=== PATIENT | female | born 1975 | race Caucasian/White ===

== ENCOUNTER 2016-07-11 07:36 | Emergency (ER) | payer OTHER ==
[2016-07-11 07:56] VITALS: BP 136/63; PULSE 88; RESP 16; TEMP 98
[2016-07-11] MEDS ORDERED: MORPHINE SULFATE 4 MG/ML SYRINGE IM STA (08:11)
--- NOTE | 2016-07-11 08:13 | ED ---
General Adult HPI - General Chief complaint: Back Pain/Injury Stated complaint: SCIATIC NERVE Time Seen by Provider: 07/11/16 08:06 Source: patient, RN notes reviewed Mode of arrival: wheelchair Limitations: no limitations - History of Present Illness Initial comments: Patient 41-year-old female who presents emergency room today with chief complaint of exacerbation of chronic sciatic pain. She does admit to pain that radiates down right leg. States goes down to her toes. Denies any bowel or bladder incontinence retention. Denies any saddle anesthesia. Denies any other complaints or associated symptoms. Patient denies any recent fever, chills , shortness of breath, chest pain, abdominal pain, nausea or vomiting, dysuria or hematuria, constipation or diarrhea, headaches or visual changes, or any other complaints. - Related Data Home Medications Medication Instructions Recorded Confirmed Albuterol Sulfate [Proair 1 puff PO RT-Q6H PRN 06/28/16 06/28/16 Respiclick] ALPRAZolam [Xanax] 0.5 mg PO BID PRN 07/11/16 07/11/16 DULoxetine HCL [Cymbalta] 20 mg PO DAILY 07/11/16 07/11/16 Hydrocodone/Acetaminophen [[place] 1 tab PO Q6H PRN 07/11/16 07/11/16 10-325] Ibuprofen [Motrin] 800 mg PO 07/11/16 Allergies Allergy/AdvReac Type Severity Reaction Status Date / Time Penicillins Allergy Severe Anaphylaxis Verified 07/11/16 07:55 Review of Systems ROS Statement: Those systems with pertinent positive or pertinent negative responses have been documented in the HPI. ROS Other: All systems not noted in ROS Statement are negative. Past Medical History Past Medical History: Asthma, COPD, Musculoskeletal Disorder Additional Past Medical History / Comment(s): spontanious pneumothorax x 5, colitis, chronic back pain migraines, ddd, 11/23/15 swallowed a ring and is in pt 's. 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 - Past Family History Mother History Unknown: Yes Family Medical History: Asthma, COPD, Hypertension, Myocardial Infarction ([place]) Additional Family Medical History / Comment(s): Arthritis General Exam - General Exam Comments Initial Comments: General: The patient is awake and alert, in no distress, and does not appear acutely ill. Eye: Pupils are equal, round and reactive to light, extra-ocular movements are intact. No nystagmus. There is normal conjunctiva bilaterally. No signs of icterus. Ears, nose, mouth and throat: There are moist mucous membranes and no oral lesions. Neck: The neck is supple, there is no tenderness or JVD. Cardiovascular: There is a regular rate and rhythm. No murmur, rub or gallop is appreciated. Respiratory: Lungs are clear to auscultation, respirations are non-labored, breath sounds are equal. No wheezes, stridor, rales, or rhonchi. Musculoskeletal: Normal ROM. Normal appearance of thoracic, lumbar spine. No step-offs deformity is appreciated. No tenderness over the spinous processes. Mild tenderness paravertebrally right lower lumbar. Strength 5/5. Sensation intact. Pulses equal bilaterally 2+. Neurological: A&O x 3. CN II-XII intact, There are no obvious motor or sensory deficits. Coordination appears grossly intact. Speech is normal. Skin: Skin is warm and dry and no rashes or lesions are noted. Psychiatric: Cooperative, appropriate mood & affect, normal judgment. Limitations: no limitations Course Vital Signs 07/11/16 07:51 Temperature 98.0 F Pulse Rate 88 Respiratory 16 Rate Blood Pressure 136/63 O2 Sat by Pulse 99 Oximetry Medical Decision Making - Medical Decision Making Patient be given a shot of pain medication of morphine here in emergency room discharged home advised follow-up with her family doctor. Disposition Clinical Impression: Acute exacerbation of chronic low back pain Disposition: HOME SELF-CARE Condition: Good Instructions: Chronic Back Pain (ED) Additional Instructions: Please follow-up with family doctor in the next 2 days of symptoms have not improved. Please return to emergency room if the symptoms increase or worsen or for any other concerns. Time of Disposition: 08:12
== END 2016-07-11 08:27 | disposition home or self-care (01) ==
LOC: EC 07:36 → SUPCPDRO 07:36 → EC 08:27
DX: G89.29 Other chronic pain (principal); M54.5 Low back pain; F32.9 Major depressive disorder, single episode, unspecified; F41.9 Anxiety disorder, unspecified; Z79.899 Other long term (current) drug therapy; Z88.0 Allergy status to penicillin
CPT/HCPCS: 99282; 96372; J2270

== ENCOUNTER 2016-07-12 00:06 | Emergency (ER) | payer OTHER ==
[2016-07-12 00:17] VITALS: TEMP 97.2
[2016-07-12] MEDS ORDERED: KETOROLAC 60 MG/2 ML VIAL IM STA (00:58)
[2016-07-12] MEDS ORDERED: ORPHENADRINE 30 MG/ML 2 ML VIAL IM STA (00:58)
[2016-07-12 01:30] LABS: Basophils # (A) 0.1 k/uL (0-0.2); Basophils % (A) 1 %; CH 31.5; Eosinophils # (A) 0.2 k/uL (0-0.7); Eosinophils % (A) 3 %; HCT 36.7 % (34.0-46.0); HDW 2.39; Luc # (Auto) 0.08; Luc % (Auto) 2; Lymphocytes # (A) 1.7 k/uL (1.0-4.8); Lymphocytes % (A) 30 %; MCH 30.3 pg (25.0-35.0); MCHC 32.6 g/dL (31.0-37.0); MCV 92.9 fL (80.0-100.0); Mean Platelet Volume 7.7; Monocytes # (A) 0.2 k/uL (0-1.0); Monocytes % (A) 4 %; Neutrophils # (A) 3.4 k/uL (1.3-7.7); Neutrophils % (A) 60 %; RBC 3.95 m/uL (3.80-5.40); RDW 12.9 % (11.5-15.5); WBC 5.6 k/uL (3.8-10.6); WBC (Perox) 5.99
[2016-07-12 01:45] LABS: Anion Gap 12 mmol/L; Blood Urea Nitrogen 12 mg/dL (7-17); Calcium 8.8 mg/dL (8.4-10.2); Carbon Dioxide 25 mmol/L (22-30); Chloride 102 mmol/L (98-107); Glucose 108 mg/dL (74-99); Non-African American GFR(MDRD) >60 (>60 ml/min/1.73 sqM); Potassium 4.1 mmol/L (3.5-5.1); Sodium 139 mmol/L (137-145)
[2016-07-12 01:57] VITALS: BP 112/68; PULSE 80; RESP 16
[2016-07-12] MEDS ORDERED: predniSONE 20 MG TAB PO STA (02:17)
--- NOTE | 2016-07-12 02:19 | ED ---
[id number]: pain all over/swelling-revisit Time Seen by Provider: 07/12/16 00:20 Source: patient, RN notes reviewed Limitations: no limitations - History of Present Illness Initial Comments: This patient is a 41-year-old woman who presents to be reevaluated for low back pain and sciatica. Patient states she was seen here yesterday. She was given medication which did somewhat improve her symptoms, and then she went home. She states that she helped her sister take down [place] decorations and then experienced flaring up of the low back pain with radiation now to both legs rather than just the left as is usual for her. The patient describes the pain as being constant, severe, a burning/tingling pain. She denies any loss of bladder or bowel control. She states she is able to walk. Pain seems to be worse with bending. She has not noted any relieving factors. MD Complaint: back pain, back injury -: hour(s) Similar Symptoms Previously: Yes Place: home Radiation: left leg, right leg Severity: severe Quality: burning, tingling Consistency: constant Improves With: none Context: other Associated Symptoms: denies other symptoms - Related Data Home Medications Medication Instructions Recorded Confirmed Albuterol Sulfate [Proair 1 puff PO RT-Q6H PRN 06/28/16 07/12/16 Respiclick] ALPRAZolam [Xanax] 0.5 mg PO BID PRN 07/11/16 07/12/16 DULoxetine HCL [Cymbalta] 20 mg PO DAILY 07/11/16 07/12/16 Hydrocodone/Acetaminophen [[place] 1 tab PO Q6H PRN 07/11/16 07/12/16 10-325] Ibuprofen [Motrin] 800 mg PO TID PRN 07/11/16 07/12/16 Previous Rx's Medication Instructions Recorded Methocarbamol [Robaxin-750] 750 mg PO TID PRN #30 tablet 07/12/16 predniSONE 60 mg PO DAILY #30 tab 07/12/16 Allergies Allergy/AdvReac Type Severity Reaction Status Date / Time Penicillins Allergy Severe Anaphylaxis Verified 07/12/16 00:17 Review of Systems ROS Statement: Those systems with pertinent positive or pertinent negative responses have been documented in the HPI. ROS Other: All systems not noted in ROS Statement are negative. Constitutional: Denies: fever, chills, weakness Respiratory: Denies: cough, dyspnea Cardiovascular: Reports: edema. Denies: chest pain, syncope Gastrointestinal: Denies: abdominal pain, nausea, vomiting, diarrhea, constipation Genitourinary: Denies: dysuria, hematuria Musculoskeletal: Reports: as per HPI, back pain Neurological: Reports: paresthesias. Denies: weakness, numbness, abnormal gait Past Medical History Past Medical History: Asthma, COPD, Musculoskeletal Disorder Additional Past Medical History / Comment(s): spontanious pneumothorax x 5, colitis, chronic back pain migraines, ddd, 11/23/15 swallowed a ring and is in pt 's. 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 - Past Family History Mother History Unknown: Yes Family Medical History: Asthma, COPD, Hypertension, Myocardial Infarction ([place]) Additional Family Medical History / Comment(s): Arthritis General Exam Limitations: no limitations General appearance: alert, in no apparent distress Head exam: Present: atraumatic, normocephalic Cardiovascular Exam: Present: regular rate, normal rhythm, normal heart sounds. Absent: systolic murmur, diastolic murmur, rubs, gallop GI/Abdominal exam: Present: soft. Absent: tenderness, guarding, rebound, rigid , mass, pulsatile mass Extremities exam: Present: normal inspection, normal capillary refill. Absent: calf tenderness Back exam: Present: paraspinal tenderness. Absent: CVA tenderness (R), CVA tenderness (L) Neurological exam: Present: alert, reflexes normal. Absent: motor sensory deficit Skin exam: Present: warm, dry, intact, normal color. Absent: rash Course Vital Signs 07/12/16 07/12/16 00:14 01:56 Temperature 97.2 F L Pulse Rate 93 80 Respiratory 18 16 Rate Blood Pressure 115/73 112/68 O2 Sat by Pulse 100 97 Oximetry Medical Decision Making - Medical Decision Making Patient is a 41-year-old woman presenting for reevaluation of low back pain after she had helped her sister work around the house. The patient while waiting for the results of the computed tomography scan did become quite irate and stated that she was leaving. Discussed risks of leaving prior to finishing her workup and the patient states she was going anyways. - Lab Data Result diagrams: 07/12/16 01:04 07/12/16 01:04 Lab Results 07/12/16 07/12/16 07/12/16 Range/Units 01:04 01:04 01:04 WBC 5.6 (3.8-10.6) k/uL RBC 3.95 (3.80-5.40) m/uL Hgb 12.0 (11.4-16.0) gm/dL Hct 36.7 (34.0-46.0) % MCV 92.9 (80.0-100.0) fL MCH 30.3 (25.0-35.0) pg MCHC 32.6 (31.0-37.0) g/dL RDW 12.9 (11.5-15.5) % Plt Count 192 (150-450) k/uL Neutrophils % 60 % Lymphocytes % 30 % Monocytes % 4 % Eosinophils % 3 % Basophils % 1 % Neutrophils # 3.4 (1.3-7.7) k/uL Lymphocytes # 1.7 (1.0-4.8) k/uL Monocytes # 0.2 (0-1.0) k/uL Eosinophils # 0.2 (0-0.7) k/uL Basophils # 0.1 (0-0.2) k/uL D-Dimer 0.25 (<0.60) mg/L FEU Sodium 139 (137-145) mmol/L Potassium 4.1 (3.5-5.1) mmol/L Chloride 102 (98-107) mmol/L Carbon Dioxide 25 (22-30) mmol/L Anion Gap 12 mmol/L BUN 12 (7-17) mg/dL Creatinine 0.60 (0.52-1.04) mg/dL Est GFR (MDRD) Af Amer >60 (>60 ml/min/1.73 sqM) Est GFR (MDRD) Non-Af >60 (>60 ml/min/1.73 sqM) Glucose 108 H (74-99) mg/dL Calcium 8.8 (8.4-10.2) mg/dL Disposition Clinical Impression: Lumbar radiculopathy Disposition: Left Against Medical Advice Condition: Fair Instructions: Sciatica (ED) Prescriptions: Methocarbamol [Robaxin-750] 750 mg PO TID PRN #30 tablet PRN Reason: pain predniSONE 60 mg PO DAILY #30 tab Referrals: Sarita Smiley MD [Primary Care Provider] - 1-2 days
--- NOTE | 2016-07-12 03:13 | CT ---
EXAMINATION TYPE: CT lumbar spine wo con DATE OF EXAM: 07/12/2016 2:58 AM COMPARISON: NONE HISTORY: pt slipped but did not fall in the bathroom, tweaked back, Hx of DDD, musculoskeletal disord er and herniated disc, history of pain injections today, swelling to bilateral leg and left leg sciat ica CT DLP: 1009.90 mGycm Automated exposure control for dose reduction was used. Unenhanced CT of the lumbar spine was performed. Bone and soft tissue window settings are submitted as well as coronal and sagittal reconstructions. FINDINGS: The lumbar vertebra have normal alignment. Disc spaces are fairly normal. Posterior elements are inta ct. There is no subluxation. I see no compression fracture. There is no lumbar paraspinal mass. There is no evidence of a bony destructive process. The sacroiliac joints appear normal. There is a mild p osterior L4-5 disc herniation with slight impingement on the thecal sac. There is also small posterio r L5-S1 disc herniation. CONCLUSION: Posterior mild disc herniations at L4-5 and L5-S1. No fracture seen.
== END 2016-07-12 03:01 | disposition left against medical advice (07) ==
LOC: EC 00:06
DX: M54.16 Radiculopathy, lumbar region (principal); F32.9 Major depressive disorder, single episode, unspecified; F41.9 Anxiety disorder, unspecified; F17.200 Nicotine dependence, unspecified, uncomplicated; Z79.899 Other long term (current) drug therapy; Z88.0 Allergy status to penicillin
CPT/HCPCS: 99284; 96372 ×2; 36415; 85379; 80048; 85025; 72131; J2360; J1885; J7512

== ENCOUNTER 2016-08-31 08:47 | Emergency (ER) | payer OTHER ==
[2016-08-31 08:58] VITALS: TEMP 97.1
[2016-08-31] MEDS ORDERED: LORazepam 1 MG TAB PO STA (09:20)
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
[2016-08-31 10:19] VITALS: BP 127/96; PULSE 103; RESP 16
== END 2016-08-31 10:20 | disposition home or self-care (01) ==
LOC: EC 08:47
DX: F41.9 Anxiety disorder, unspecified (principal); F32.9 Major depressive disorder, single episode, unspecified; F17.200 Nicotine dependence, unspecified, uncomplicated; Z88.0 Allergy status to penicillin; Z79.899 Other long term (current) drug therapy
CPT/HCPCS: 99282

== ENCOUNTER 2016-09-01 08:03 | Emergency (ER) | payer OTHER ==
[2016-09-01] MEDS ORDERED: HYDROcodone/APAP 5-325MG 1 EACH TAB PO STA (08:21)
[2016-09-01] MEDS ORDERED: DIPH,PERTUS(ACELL)TETVAC-LF 0.5 ML VIAL IM ONE (08:21)
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
[2016-09-01 09:48] VITALS: BP 114/55; PULSE 76; RESP 14
[2016-09-01 09:49] VITALS: TEMP 99.1
== END 2016-09-01 09:50 | disposition home or self-care (01) ==
LOC: EC 08:03
DX: S63.502A Unspecified sprain of left wrist, initial encounter (principal); J44.9 Chronic obstructive pulmonary disease, unspecified; J45.909 Unspecified asthma, uncomplicated; F41.9 Anxiety disorder, unspecified; F32.9 Major depressive disorder, single episode, unspecified; M79.9 Soft tissue disorder, unspecified; F17.200 Nicotine dependence, unspecified, uncomplicated; Z23 Encounter for immunization; Z79.899 Other long term (current) drug therapy; Z88.0 Allergy status to penicillin; Z88.8 Allergy status to other drugs, medicaments and biological substances; W18.30XA Fall on same level, unspecified, initial encounter; X50.1XXA Overexertion from prolonged static or awkward postures, initial encounter
CPT/HCPCS: 90471; 90715; 99283

== ENCOUNTER 2016-10-28 19:24 | Emergency (ER) | payer OTHER ==
[2016-10-28 19:52] VITALS: PULSE 105; RESP 20; TEMP 98.5
[2016-10-28 20:13] VITALS: BP 165/102
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
== END 2016-10-28 21:03 | disposition home or self-care (01) ==
LOC: EC 19:24
DX: F10.129 Alcohol abuse with intoxication, unspecified (principal); F32.9 Major depressive disorder, single episode, unspecified; F41.9 Anxiety disorder, unspecified; F17.200 Nicotine dependence, unspecified, uncomplicated; Z79.899 Other long term (current) drug therapy; Z88.0 Allergy status to penicillin; Z88.8 Allergy status to other drugs, medicaments and biological substances
CPT/HCPCS: 82075; 99284

== ENCOUNTER 2016-11-11 20:56 | Emergency (ER) | payer OTHER ==
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
[2016-11-11 22:22] VITALS: RESP 18
[2016-11-11 22:28] LABS: Basophils % (A) 1 %; CH 31.5; CHCM 34.9; Eosinophils % (A) 1 %; HCT 33.7 % (34.0-46.0); HDW 2.37; HGB 11.7 gm/dL (11.4-16.0); Luc # (Auto) 0.07; Luc % (Auto) 2; Lymphocytes # (A) 1.2 k/uL (1.0-4.8); Lymphocytes % (A) 27 %; MCH 31.6 pg (25.0-35.0); MCHC 34.8 g/dL (31.0-37.0); MCV 90.7 fL (80.0-100.0); Mean Platelet Volume 7.1; Monocytes # (A) 0.2 k/uL (0-1.0); Monocytes % (A) 3 %; Neutrophils % (A) 67 %; RBC 3.71 m/uL (3.80-5.40); RDW 14.1 % (11.5-15.5); WBC 4.6 k/uL (3.8-10.6); WBC (Perox) 4.58
[2016-11-11 22:39] LABS: ALT 32 U/L (9-52); AST 36 U/L (14-36); Acetaminophen <10.0 ug/mL; Alkaline Phosphatase 66 U/L (38-126); Anion Gap 9 mmol/L; Blood Urea Nitrogen 15 mg/dL (7-17); Calcium 8.3 mg/dL (8.4-10.2); Carbon Dioxide 23 mmol/L (22-30); Chloride 109 mmol/L (98-107); Glucose 94 mg/dL (74-99); Non-African American GFR(MDRD) >60 (>60 ml/min/1.73 sqM); Potassium 3.8 mmol/L (3.5-5.1); Salicylate <1.0 mg/dL; Sodium 141 mmol/L (137-145); Total Bilirubin 0.3 mg/dL (0.2-1.3); Total Protein 6.5 g/dL (6.3-8.2)
[2016-11-11 22:40] LABS: Alcohol 182 mg/dL
--- NOTE | 2016-11-12 06:40 | XR ---
EXAM: XR Right Ribs and AP Chest, 3 or More Views CLINICAL HISTORY: Reason: Pain TECHNIQUE: Frontal and oblique views of the right ribs and frontal view of the chest. COMPARISON: Chest radiograph 06/08/2016 FINDINGS: Supine frontal chest radiograph: Lungs: Mild chronic right apical fibrotic scarring. Lungs are otherwise clear without acute infiltrates or consolidations. Pleural space: No evidence of pleural effusion or pneumothorax. Heart: Heart size and mediastinal structures are within normal limits. Mediastinum: Unremarkable. Right rib radiographs: Bones/joints: No right rib fractures identified. No osteolytic, osteoblastic or bony destructive rib lesions identified. IMPRESSION: No evidence of right rib fracture.
[2016-11-12 07:29] VITALS: BP 134/58; PULSE 77; TEMP 98.4
== END 2016-11-12 07:29 | disposition home or self-care (01) ==
LOC: EC 20:56
DX: F10.10 Alcohol abuse, uncomplicated (principal); R45.851 Suicidal ideations; F43.9 Reaction to severe stress, unspecified; F32.9 Major depressive disorder, single episode, unspecified; F41.9 Anxiety disorder, unspecified; F17.200 Nicotine dependence, unspecified, uncomplicated; Z79.899 Other long term (current) drug therapy; Z79.891 Long term (current) use of opiate analgesic; Z88.0 Allergy status to penicillin; Z88.8 Allergy status to other drugs, medicaments and biological substances
CPT/HCPCS: 36415; 80053; 80306; 80320; 81025; 83520; 85025; 93005; 99285

== ENCOUNTER 2016-12-14 15:17 | Emergency (ER) | payer OTHER ==
[2016-12-14 15:24] VITALS: BP 125/64; PULSE 103; RESP 18; TEMP 97.4
[2016-12-14] MEDS ORDERED: KETOROLAC 60 MG/2 ML VIAL IM STA (15:48)
[2016-12-14] MEDS ORDERED: CYCLOBENZAPRINE 10 MG TAB PO STA (15:48)
--- NOTE | 2016-12-14 15:52 | ED ---
Back Pain HPI - General Chief Complaint: Back Pain/Injury Stated Complaint: Fall/ 4 steps/Back Pain Time Seen by Provider: 12/14/16 15:41 Source: patient, RN notes reviewed Limitations: no limitations - History of Present Illness Initial Comments: 41-year-old female presents emergency Department chief complaint low back pain. She states that she was at the hotel and states that the mouth for states that she slipped down the stairs but never fell to the ground. She states she caught herself and felt like she may have twisted her back. Patient was able to ambulate from there to here and in the room. Patient denies any bowel bladder incontinence or retention. Denies any saddle anesthesias. Patient states she has some paresthesias or caught on her left lateral leg into her posterior left leg into her foot. Patient denies any other injury at this time. She states that she does have a long history of back pain. - Related Data Home Medications Medication Instructions Recorded Confirmed Albuterol Inhaler [Ventolin Hfa 2 puff INHALATION RT-QID PRN 08/31/16 10/28/16 Inhaler] Albuterol Nebulized [Ventolin 2.5 mg INHALATION RT-QID PRN 08/31/16 10/28/16 Nebulized] DULoxetine HCL [Cymbalta] 60 mg PO DAILY 08/31/16 10/28/16 Gabapentin [Neurontin] 100 mg PO TID 08/31/16 10/28/16 ALPRAZolam [Xanax] 0.5 mg PO HS PRN 10/28/16 10/28/16 HYDROcodone/APAP 7.5-325MG [[place] 1 tab PO BID 10/28/16 10/28/16 7.5-325] Nitrofurantoin Monohyd/M-Cryst 100 mg PO BID 10/28/16 10/28/16 [Macrobid] Previous Rx's Medication Instructions Recorded Acetaminophen-Codeine 300-30mg 1 tab PO Q4H PRN #20 tablet 12/14/16 [Tylenol #3] Cyclobenzaprine [Flexeril] 10 mg PO TID PRN #15 tab 12/14/16 methylPREDNISolone [Medrol Dose 4 mg PO DIRECTED #1 pack 12/14/16 Pack] Allergies Allergy/AdvReac Type Severity Reaction Status Date / Time Penicillins Allergy Severe Anaphylaxis Verified 12/14/16 15:24 imipramine AdvReac Unknown Verified 12/14/16 15:24 Review of Systems ROS Statement: Those systems with pertinent positive or pertinent negative responses have been documented in the HPI. ROS Other: All systems not noted in ROS Statement are negative. Past Medical History Past Medical History: Asthma, COPD, Musculoskeletal Disorder Additional Past Medical History / Comment(s): spontanious pneumothorax x 5, colitis, chronic back pain migraines, ddd, 11/23/15 swallowed a ring and is in pt 's. 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 - Past Family History Mother History Unknown: Yes Family Medical History: Asthma, COPD, Hypertension, Myocardial Infarction ([place]) Additional Family Medical History / Comment(s): Arthritis General Exam Limitations: no limitations Course Vital Signs 12/14/16 15:22 Temperature 97.4 F L Pulse Rate 103 H Respiratory 18 Rate Blood Pressure 125/64 O2 Sat by Pulse 96 Oximetry Medical Decision Making - Medical Decision Making 41-year-old female presented emergency from for low back pain. Patient has lumbar strain. Patient has no red flag symptoms. Patient pain and numbness is variants with the turn exam then when she explained it. Patient will be treated with muscle relaxers, steroids and tell coating for lumbar strain. Patient we discharged with follow-up with her primary care physician. Disposition Clinical Impression: Strain of lumbar region Disposition: HOME SELF-CARE Condition: Stable Instructions: Acute Low Back Pain (ED) Additional Instructions: Please return to the Emergency Department if symptoms worsen or any other concerns. Prescriptions: Acetaminophen-Codeine 300-30mg [Tylenol #3] 1 tab PO Q4H PRN #20 tablet PRN Reason: pain Cyclobenzaprine [Flexeril] 10 mg PO TID PRN #15 tab PRN Reason: Muscle Spasm methylPREDNISolone [Medrol Dose Pack] 4 mg PO DIRECTED #1 pack Referrals: None,Stated [Primary Care Provider] - 1-2 days Time of Disposition: 15:51
== END 2016-12-14 16:15 | disposition home or self-care (01) ==
LOC: EC 15:17
DX: S39.012A Strain of muscle, fascia and tendon of lower back, initial encounter (principal); F32.9 Major depressive disorder, single episode, unspecified; F17.200 Nicotine dependence, unspecified, uncomplicated; Z88.0 Allergy status to penicillin; Z88.8 Allergy status to other drugs, medicaments and biological substances; Z79.899 Other long term (current) drug therapy; W10.9XXA Fall (on) (from) unspecified stairs and steps, initial encounter; Y92.59 Other trade areas as the place of occurrence of the external cause
CPT/HCPCS: 99283; 96372; J1885

== ENCOUNTER 2016-12-24 12:39 | Emergency (ER) | payer OTHER ==
[2016-12-24 12:47] VITALS: BP 126/86; PULSE 89; RESP 18; TEMP 97.1
--- NOTE | 2016-12-24 13:41 | ED ---
ENT HPI - General Chief complaint: Dental/Oral Stated complaint: Broken Tooth Time Seen by Provider: 12/24/16 13:07 Source: patient, RN notes reviewed Mode of arrival: ambulatory Limitations: no limitations - History of Present Illness Initial comments: 41 yo female presents to the ER with cc of left-sided dental pain. Patient states she was eating. She cracked her left lower tooth. Patient states she is now having pain and discomfort to the tooth. Patient denies any drainage or discharge any fever chills. Patient denies any difficulty opening or closing the mouth. Patient denies any radiation to the neck. Patient states she was concerned due to her symptoms so she thought that she should be evaluated. Patient denies any recent fever, chills, shortness of breath, chest pain, back pain, abdominal pain, nausea vomiting, numbness or tingling, dysuria or hematuria, constipation or diarrhea, headaches or visual changes, or any other current symptoms. - Related Data Home Medications Medication Instructions Recorded Confirmed Albuterol Inhaler [Ventolin Hfa 2 puff INHALATION RT-QID PRN 08/31/16 10/28/16 Inhaler] Albuterol Nebulized [Ventolin 2.5 mg INHALATION RT-QID PRN 08/31/16 10/28/16 Nebulized] DULoxetine HCL [Cymbalta] 60 mg PO DAILY 08/31/16 10/28/16 Gabapentin [Neurontin] 100 mg PO TID 08/31/16 10/28/16 ALPRAZolam [Xanax] 0.5 mg PO HS PRN 10/28/16 10/28/16 HYDROcodone/APAP 7.5-325MG [[place] 1 tab PO BID 10/28/16 10/28/16 7.5-325] Nitrofurantoin Monohyd/M-Cryst 100 mg PO BID 10/28/16 10/28/16 [Macrobid] Previous Rx's Medication Instructions Recorded Acetaminophen-Codeine 300-30mg 1 tab PO Q4H PRN #20 tablet 12/14/16 [Tylenol #3] Cyclobenzaprine [Flexeril] 10 mg PO TID PRN #15 tab 12/14/16 methylPREDNISolone [Medrol Dose 4 mg PO DIRECTED #1 pack 12/14/16 Pack] Clindamycin [Cleocin] 450 mg PO Q8HR #90 capsule 12/24/16 traMADol HCl [Ultram] 50 mg PO Q4H PRN #20 tab 12/24/16 Allergies Allergy/AdvReac Type Severity Reaction Status Date / Time Penicillins Allergy Severe Anaphylaxis Verified 12/24/16 12:45 codeine Allergy Unknown Verified 12/24/16 12:45 imipramine AdvReac Unknown Verified 12/24/16 12:45 Review of Systems ROS Statement: Those systems with pertinent positive or pertinent negative responses have been documented in the HPI. ROS Other: All systems not noted in ROS Statement are negative. Past Medical History Past Medical History: Asthma, COPD, Musculoskeletal Disorder Additional Past Medical History / Comment(s): spontanious pneumothorax x 5, colitis, chronic back pain, migraines, ddd History of Any Multi-Drug Resistant Organisms: None Reported Past Surgical History: Tubal Ligation Additional Past Surgical History / Comment(s): 4 chest tubes Past Anesthesia/Blood Transfusion Reactions: No Reported Reaction Past Psychological History: Anxiety, Depression Smoking Status: Current some day smoker Past Alcohol Use History: None Reported Past Drug Use History: None Reported - Past Family History Mother History Unknown: Yes Family Medical History: Asthma, COPD, Hypertension, Myocardial Infarction ([place]) Additional Family Medical History / Comment(s): Arthritis General Exam Limitations: no limitations General appearance: alert, in no apparent distress Eye exam: Present: normal appearance, PERRL, EOMI. Absent: scleral icterus, conjunctival injection, periorbital swelling Expanded Ear exam: Present: normal external inspection Mouth exam: Present: normal external inspection Teeth exam: Present: dental caries (Diffuse), fractured tooth # (20), dental tenderness # (20). Absent: gingival enlargement Neck exam: Present: normal inspection. Absent: tenderness, meningismus, lymphadenopathy Respiratory exam: Present: normal lung sounds bilaterally. Absent: respiratory distress, wheezes, rales, rhonchi, stridor Cardiovascular Exam: Present: regular rate, normal rhythm, normal heart sounds. Absent: systolic murmur, diastolic murmur, rubs, gallop, clicks Neurological exam: Present: alert, oriented X3 Psychiatric exam: Present: normal affect Skin exam: Present: warm, dry, intact, normal color. Absent: rash Course Vital Signs 12/24/16 12:43 Temperature 97.1 F L Pulse Rate 89 Respiratory 18 Rate Blood Pressure 126/86 O2 Sat by Pulse 100 Oximetry Medical Decision Making - Medical Decision Making 46-year-old female presents emergency Department chief complaint of left-sided dental pain. This was a patient on medication and backs. We discussed follow- up with the dentist and she was given information. We discussed return parameters and all the questions. She stated that she understood the plan. She 'll be discharged. Disposition Clinical Impression: Fractured tooth Disposition: HOME SELF-CARE Condition: Stable Instructions: Toothache (ED) Additional Instructions: Please use medication as discussed. Please follow up with family doctor if symptoms have not improved over the next two days. Please return to the emergency room if your symptoms increase or worsen or for any other concerns. [facility] [address] [place] [address] [phone] (existing clients only) For new clients: [phone] 1st consult: $50 (includes Xrays) Usually 30% less then private dentist for visits after. [employer] Have to pay $50 for Xrays anmd rest is covered. [phone] Prescriptions: Clindamycin [Cleocin] 450 mg PO Q8HR #90 capsule traMADol HCl [Ultram] 50 mg PO Q4H PRN #20 tab PRN Reason: Pain Referrals: Santo Haile DO [STAFF PHYSICIAN] - 1-2 days Time of Disposition: 13:40
== END 2016-12-24 13:47 | disposition home or self-care (01) ==
LOC: EC 12:39
DX: K03.81 Cracked tooth (principal); K02.9 Dental caries, unspecified; G89.29 Other chronic pain; F17.200 Nicotine dependence, unspecified, uncomplicated; Z79.891 Long term (current) use of opiate analgesic; Z79.899 Other long term (current) drug therapy; Z88.0 Allergy status to penicillin; Z88.5 Allergy status to narcotic agent; Z88.8 Allergy status to other drugs, medicaments and biological substances
CPT/HCPCS: 99282

== ENCOUNTER → 2018-03-09 | Outpatient (CLI) | payer OTHER ==
--- NOTE | 2018-03-09 14:46 | XR ---
EXAMINATION TYPE: XR lumbosacral spine min 4V DATE OF EXAM: 03/09/2018 CLINICAL HISTORY: pain COMPARISON: NONE TECHNIQUE: Frontal, lateral, and oblique images of the lumbar spine are obtained. FINDINGS: There are 5 lumbar type vertebral bodies identified. The lumbar spine shows satisfactory alignment without evidence of acute fracture or dislocation. Vertebral body heights are within normal limits. [id number] degenerative disc space narrowing at L4-5 and L5-S1. The overlying soft t issue appears unremarkable. IMPRESSION: No acute fracture or dislocation is seen in the lumbar spine. ICD 10 NO FRACTURE, INITIAL EVALUATION
== END | disposition home or self-care (01) ==
LOC: RADXRMAIN 14:07
PROVIDERS: ATTEND Internal Medicine
DX: M54.5 Low back pain (principal)
CPT/HCPCS: 72110

== ENCOUNTER → 2018-05-26 | Outpatient (CLI) | payer OTHER ==
--- NOTE | 2018-05-27 16:12 | MR ---
EXAMINATION TYPE: MR lumbar spine wo con DATE OF EXAM: 05/26/2018 COMPARISON: CT lumbar spine dated 07/12/2016 HISTORY: Chronic low back pain, radiates down lt leg TECHNIQUE: Multiplanar, multisequence images of the lumbar spine were acquired. FINDINGS: There is grade 1 anterolisthesis of L4 on L5 with disc uncovering. Bone marrow signal is wi thin normal limits other than a T2/T1 hyperintense vertebral body hemangioma of L3. Multilevel Schmor l's nodes are seen. Multilevel disc desiccation is seen. Conus medullaris is unremarkable terminating at L1-L2. L1-L2: There is desiccation without spinal canal stenosis or neural foraminal narrowing. L2-L3: There is a left eccentric broad-based disc bulge without spinal canal stenosis or right neural foraminal narrowing. There is very mild left neural foraminal narrowing. L3-L4: There is a broad-based disc bulge, facet arthropathy and ligamentum flavum buckling creating m ild bilateral neural foraminal narrowing. No significant spinal canal stenosis. L4-L5: Grade 1 anterolisthesis creates disc uncovering. There is a broad-based disc bulge and facet a rthropathy creating mild left and moderate right neural foraminal narrowing. No spinal canal stenosis . L5-S1: There is a small central disc herniation/protrusion superimposed upon a broad-based disc bulge that is left eccentric. This results in moderate to severe left neural foraminal narrowing with impi ngement of the exiting L5 nerve root. No significant spinal canal stenosis or right neural foraminal narrowing. IMPRESSION: 1. Central disc herniation at L5-S1 resulting in moderate to severe left neural foraminal narrowing w ith impingement on the exiting L5 nerve root. 2. Grade 1 anterolisthesis of L4 on L5 in combination with degenerative disc disease creating moderat e right neural foraminal narrowing. 3. Multilevel degenerative disc disease throughout the lumbar spine as described above.
== END | disposition home or self-care (01) ==
LOC: RADMRIMAIN 16:29
PROVIDERS: ATTEND Psychiatry & Neurology Neurology
DX: M99.73 Connective tissue and disc stenosis of intervertebral foramina of lumbar region (principal); M99.74 Connective tissue and disc stenosis of intervertebral foramina of sacral region; M51.27 Other intervertebral disc displacement, lumbosacral region; M43.16 Spondylolisthesis, lumbar region; M51.36 Other intervertebral disc degeneration, lumbar region; Z88.0 Allergy status to penicillin
CPT/HCPCS: 72148

== ENCOUNTER 2018-08-26 23:18 | Emergency (ER) | payer OTHER ==
--- NOTE | 2018-08-26 23:24 | ED ---
Overdose HPI - General Stated Complaint: Drug Overdose Time Seen by Provider: 08/26/18 23:22 - History of Present Illness Initial Comments: Angie is a 43-year-old female who presents the emergency department via EMS in police custody for evaluation of suicidal ideation and suicidal overdose. Per EMS they were contacted to evaluate the patient, she was found to have 2 pill bottles with multiple pills scattered around her. The pill bottles were not her medications. The pills were BuSpar 2mg and Risperidone 5 mg dose of these bottles were filled on 07/15/2018 with 60 pills each. Uncertain what the count was today. EMS reports multiple pills were on the table near the patient , patient cannot quantify how many pills she may have taken. - Related Data Home Medications Medication Instructions Recorded Confirmed No Known Home Medications 08/27/18 08/27/18 Allergies Allergy/AdvReac Type Severity Reaction Status Date / Time Penicillins Allergy Severe Anaphylaxis Verified 08/27/18 09:36 codeine Allergy Unknown Verified 08/27/18 09:36 imipramine AdvReac Unknown Verified 08/27/18 09:36 Review of Systems ROS Statement: Those systems with pertinent positive or pertinent negative responses have been documented in the HPI. ROS Other: All systems not noted in ROS Statement are negative. Limitations: ROS unobtainable due to patients medical condition (suicidal, non- cooperative) Past Medical History Past Medical History: Asthma, COPD, Musculoskeletal Disorder Additional Past Medical History / Comment(s): spontanious pneumothorax x 5, colitis, chronic back pain, migraines, ddd History of Any Multi-Drug Resistant Organisms: None Reported Past Surgical History: Tubal Ligation Additional Past Surgical History / Comment(s): 4 chest tubes Past Anesthesia/Blood Transfusion Reactions: No Reported Reaction Past Psychological History: Anxiety, Depression Smoking Status: Current some day smoker Past Alcohol Use History: None Reported Past Drug Use History: None Reported - Past Family History Mother History Unknown: Yes Family Medical History: Asthma, COPD, Hypertension, Myocardial Infarction ([place]) Additional Family Medical History / Comment(s): Arthritis General Exam - General Exam Comments Initial Comments: Physical Exam GENERAL: sleepy, non-cooperative with exam HENT: Normocephalic, Atraumatic. EYES: PERRL, EOMI PULMONARY: Unlabored respirations. No audible rales rhonchi or wheezing was noted. CARDIOVASCULAR: There is a regular rate and rhythm without any murmurs gallops or rubs. ABDOMEN: Soft and nontender with normal bowel sounds. SKIN: Skin is clear with no lesions or rashes and otherwise unremarkable. Not diaphoretic : Normal external genitalia NEUROLOGIC: Alert and oriented to person, able to identify she is in the hospital she came by ambulance, admits to taking medications are not hers cannot quantify amount MUSCULOSKELETAL: Normal extremities with adequate strength and full range of motion. No lower extremity swelling or edema. No calf tenderness. PSYCHIATRIC: Suicidal Limitations: no limitations Course Vital Signs 08/26/18 08/26/18 08/27/18 23:21 23:37 00:10 Temperature 96.8 F L Pulse Rate 84 80 85 Respiratory 16 Rate Blood Pressure 110/66 107/63 128/79 O2 Sat by Pulse 93 L 95 Oximetry 08/27/18 08/27/18 08/27/18 00:40 01:10 01:40 Temperature Pulse Rate 78 98 84 Respiratory Rate Blood Pressure 121/66 138/93 104/64 O2 Sat by Pulse 98 100 Oximetry 08/27/18 08/27/18 08/27/18 02:10 07:00 07:30 Temperature Pulse Rate 82 77 73 Respiratory 17 Rate Blood Pressure 125/70 129/83 128/81 O2 Sat by Pulse 99 98 96 Oximetry 08/27/18 08/27/18 08/27/18 08:00 08:30 09:00 Temperature Pulse Rate 81 80 79 Respiratory Rate Blood Pressure 125/82 128/71 O2 Sat by Pulse 96 97 Oximetry 08/27/18 08/27/18 08/27/18 09:30 10:00 10:30 Temperature Pulse Rate 85 97 90 Respiratory Rate Blood Pressure 133/82 127/73 123/79 O2 Sat by Pulse 97 98 Oximetry 08/27/18 08/27/18 08/27/18 11:00 11:30 12:00 Temperature Pulse Rate 98 81 96 Respiratory Rate Blood Pressure 133/78 123/62 O2 Sat by Pulse 97 97 97 Oximetry 08/27/18 08/27/18 08/27/18 12:30 13:30 14:00 Temperature Pulse Rate 78 74 98 Respiratory Rate Blood Pressure 140/84 127/83 135/82 O2 Sat by Pulse 98 98 Oximetry 08/27/18 08/27/18 08/27/18 14:30 15:00 15:30 Temperature Pulse Rate 89 90 92 Respiratory Rate Blood Pressure 140/85 142/76 128/73 O2 Sat by Pulse 98 96 96 Oximetry 08/27/18 08/27/18 08/27/18 16:00 16:30 17:00 Temperature Pulse Rate 92 73 84 Respiratory Rate Blood Pressure 124/79 129/75 130/81 O2 Sat by Pulse 96 98 98 Oximetry 08/27/18 08/27/18 08/27/18 17:30 21:52 22:00 Temperature Pulse Rate 77 78 68 Respiratory 18 Rate Blood Pressure 126/90 O2 Sat by Pulse 97 Oximetry - Reevaluation(s) Reevaluation #1: Patient has been calm and cooperative this morning she is complaining of some sciatic pain and requested Motrin. When necessary Motrin was ordered. Patient is still awaiting placement in a psychiatric facility. 08/28/18 06:43 Medical Decision Making - Medical Decision Making The patient was seen and evaluated history is obtained from patient and EMS EMS was able to provide the pill bottles which the patient reports she took pills out of Patient does admit to taking multiple pills she doesn't know the number Physical exam reveals a sleepy female in no acute distress labs and EKG were ordered EKG with new QT prolongation no acute ST elevations or depressions no evidence of acute ischemia or infarction Patient care was discussed with poison control who recommended replacing patient 's potassium repeat EKG 2 hours after potassium is replaced continue to monitor Repeat EKG obtained at 4:16 AM rate is 78 rhythm is sinus there is a normal axis there are normal intervals, RI 154, QRS 80, QTC 465. There is no acute ST elevations or depressions no evidence of acute ischemia or infarction. Previously observed QT prolongation has resolved Patient alcohol level elevated - will be sober at 0700 Patient care signed out to oncoming physician at shift change patient awaiting evaluation by EPS and placement in psychiatric facility - Lab Data Result diagrams: 08/26/18 23:36 08/26/18 23:36 Lab Results 08/26/18 08/26/18 08/26/18 Range/Units 00:50 23:36 23:36 WBC 5.1 (3.8-10.6) k/uL RBC 4.23 (3.80-5.40) m/uL Hgb 12.4 (11.4-16.0) gm/dL Hct 36.9 (34.0-46.0) % MCV 87.3 (80.0-100.0) fL MCH 29.3 (25.0-35.0) pg MCHC 33.5 (31.0-37.0) g/dL RDW 14.0 (11.5-15.5) % Plt Count 241 (150-450) k/uL Neutrophils % 62 % Lymphocytes % 32 % Monocytes % 2 % Eosinophils % 2 % Basophils % 1 % Neutrophils # 3.2 (1.3-7.7) k/uL Lymphocytes # 1.6 (1.0-4.8) k/uL Monocytes # 0.1 (0-1.0) k/uL Eosinophils # 0.1 (0-0.7) k/uL Basophils # 0.0 (0-0.2) k/uL PT (9.0-12.0) sec INR (<1.2) Sodium 142 (137-145) mmol/L Potassium 3.3 L (3.5-5.1) mmol/L Chloride 114 H (98-107) mmol/L Carbon Dioxide 19 L (22-30) mmol/L Anion Gap 9 mmol/L BUN 8 (7-17) mg/dL Creatinine 0.56 (0.52-1.04) mg/dL Est GFR (CKD-EPI)AfAm >90 (>60 ml/min/1.73 sqM) Est GFR (CKD-EPI)NonAf >90 (>60 ml/min/1.73 sqM) Glucose 108 H (74-99) mg/dL Calcium 9.0 (8.4-10.2) mg/dL Magnesium (1.6-2.3) mg/dL Total Bilirubin 0.4 (0.2-1.3) mg/dL AST 22 (14-36) U/L ALT 23 (9-52) U/L Alkaline Phosphatase 66 (38-126) U/L Total Protein 6.9 (6.3-8.2) g/dL Albumin 4.1 (3.5-5.0) g/dL Urine Color Urine Appearance (Clear) Urine pH (5.0-8.0) Ur Specific Ripley (1.001-1.035) Urine Protein (Negative) Urine Glucose (UA) (Negative) Urine Ketones (Negative) Urine Blood (Negative) Urine Nitrite (Negative) Urine Bilirubin (Negative) Urine Urobilinogen (<2.0) mg/dL Ur Leukocyte Esterase (Negative) Urine RBC (0-5) /hpf Urine WBC (0-5) /hpf Ur Squamous Epith Cells (0-4) /hpf Urine Mucus (None) /hpf Urine HCG, Qual (Not Detectd) Salicylates <1.0 mg/dL Urine Opiates Screen Not Detected (NotDetected) Ur Oxycodone Screen Not Detected (NotDetected) Urine Methadone Screen Not Detected (NotDetected) Ur Propoxyphene Screen Not Detected (NotDetected) Acetaminophen <10.0 ug/mL Ur Barbiturates Screen Not Detected (NotDetected) U Tricyclic Antidepress Not Detected (NotDetected) Ur Phencyclidine Scrn Not Detected (NotDetected) Ur Amphetamines Screen Not Detected (NotDetected) U Methamphetamines Scrn Not Detected (NotDetected) U Benzodiazepines Scrn Not Detected (NotDetected) Urine Cocaine Screen Detected H (NotDetected) U Marijuana (THC) Screen Detected H (NotDetected) Serum Alcohol 219 H* mg/dL 08/26/18 08/27/18 08/27/18 Range/Units 23:36 00:29 00:50 WBC (3.8-10.6) k/uL RBC (3.80-5.40) m/uL Hgb (11.4-16.0) gm/dL Hct (34.0-46.0) % MCV (80.0-100.0) fL MCH (25.0-35.0) pg MCHC (31.0-37.0) g/dL RDW (11.5-15.5) % Plt Count (150-450) k/uL Neutrophils % % Lymphocytes % % Monocytes % % Eosinophils % % Basophils % % Neutrophils # (1.3-7.7) k/uL Lymphocytes # (1.0-4.8) k/uL Monocytes # (0-1.0) k/uL Eosinophils # (0-0.7) k/uL Basophils # (0-0.2) k/uL PT 10.9 (9.0-12.0) sec INR 1.0 (<1.2) Sodium (137-145) mmol/L Potassium (3.5-5.1) mmol/L Chloride (98-107) mmol/L Carbon Dioxide (22-30) mmol/L Anion Gap mmol/L BUN (7-17) mg/dL Creatinine (0.52-1.04) mg/dL Est GFR (CKD-EPI)AfAm (>60 ml/min/1.73 sqM) Est GFR (CKD-EPI)NonAf (>60 ml/min/1.73 sqM) Glucose (74-99) mg/dL Calcium (8.4-10.2) mg/dL Magnesium 2.3 (1.6-2.3) mg/dL Total Bilirubin (0.2-1.3) mg/dL AST (14-36) U/L ALT (9-52) U/L Alkaline Phosphatase (38-126) U/L Total Protein (6.3-8.2) g/dL Albumin (3.5-5.0) g/dL Urine Color Urine Appearance (Clear) Urine pH (5.0-8.0) Ur Specific Ripley (1.001-1.035) Urine Protein (Negative) Urine Glucose (UA) (Negative) Urine Ketones (Negative) Urine Blood (Negative) Urine Nitrite (Negative) Urine Bilirubin (Negative) Urine Urobilinogen (<2.0) mg/dL Ur Leukocyte Esterase (Negative) Urine RBC (0-5) /hpf Urine WBC (0-5) /hpf Ur Squamous Epith Cells (0-4) /hpf Urine Mucus (None) /hpf Urine HCG, Qual Not Detected (Not Detectd) Salicylates mg/dL Urine Opiates Screen (NotDetected) Ur Oxycodone Screen (NotDetected) Urine Methadone Screen (NotDetected) Ur Propoxyphene Screen (NotDetected) Acetaminophen ug/mL Ur Barbiturates Screen (NotDetected) U Tricyclic Antidepress (NotDetected) Ur Phencyclidine Scrn (NotDetected) Ur Amphetamines Screen (NotDetected) U Methamphetamines Scrn (NotDetected) U Benzodiazepines Scrn (NotDetected) Urine Cocaine Screen (NotDetected) U Marijuana (THC) Screen (NotDetected) Serum Alcohol mg/dL 08/27/18 08/27/18 Range/Units 18:10 18:10 WBC (3.8-10.6) k/uL RBC (3.80-5.40) m/uL Hgb (11.4-16.0) gm/dL Hct (34.0-46.0) % MCV (80.0-100.0) fL MCH (25.0-35.0) pg MCHC (31.0-37.0) g/dL RDW (11.5-15.5) % Plt Count (150-450) k/uL Neutrophils % % Lymphocytes % % Monocytes % % Eosinophils % % Basophils % % Neutrophils # (1.3-7.7) k/uL Lymphocytes # (1.0-4.8) k/uL Monocytes # (0-1.0) k/uL Eosinophils # (0-0.7) k/uL Basophils # (0-0.2) k/uL PT (9.0-12.0) sec INR (<1.2) Sodium (137-145) mmol/L Potassium (3.5-5.1) mmol/L Chloride (98-107) mmol/L Carbon Dioxide (22-30) mmol/L Anion Gap mmol/L BUN (7-17) mg/dL Creatinine (0.52-1.04) mg/dL Est GFR (CKD-EPI)AfAm (>60 ml/min/1.73 sqM) Est GFR (CKD-EPI)NonAf (>60 ml/min/1.73 sqM) Glucose (74-99) mg/dL Calcium (8.4-10.2) mg/dL Magnesium (1.6-2.3) mg/dL Total Bilirubin (0.2-1.3) mg/dL AST (14-36) U/L ALT (9-52) U/L Alkaline Phosphatase (38-126) U/L Total Protein (6.3-8.2) g/dL Albumin (3.5-5.0) g/dL Urine Color Yellow Urine Appearance Clear (Clear) Urine pH 5.5 (5.0-8.0) Ur Specific Ripley 1.019 (1.001-1.035) Urine Protein Negative (Negative) Urine Glucose (UA) Negative (Negative) Urine Ketones Negative (Negative) Urine Blood Small H (Negative) Urine Nitrite Negative (Negative) Urine Bilirubin Negative (Negative) Urine Urobilinogen <2.0 (<2.0) mg/dL Ur Leukocyte Esterase Small H (Negative) Urine RBC 1 (0-5) /hpf Urine WBC 1 (0-5) /hpf Ur Squamous Epith Cells 4 (0-4) /hpf Urine Mucus Many H (None) /hpf Urine HCG, Qual (Not Detectd) Salicylates mg/dL Urine Opiates Screen Not Detected (NotDetected) Ur Oxycodone Screen Not Detected (NotDetected) Urine Methadone Screen Not Detected (NotDetected) Ur Propoxyphene Screen Not Detected (NotDetected) Acetaminophen ug/mL Ur Barbiturates Screen Not Detected (NotDetected) U Tricyclic Antidepress Not Detected (NotDetected) Ur Phencyclidine Scrn Not Detected (NotDetected) Ur Amphetamines Screen Not Detected (NotDetected) U Methamphetamines Scrn Not Detected (NotDetected) U Benzodiazepines Scrn Detected H (NotDetected) Urine Cocaine Screen Detected H (NotDetected) U Marijuana (THC) Screen Detected H (NotDetected) Serum Alcohol <10 mg/dL Critical Care Time Critical Care Time: Yes Total Critical Care Time: 30 Critical Care Time: Critical Care Critical care time was exclusive of separately billable procedures and treating other patients. Critical care was necessary to treat or prevent imminent or life-threatening deterioration. Critical care was time spent personally by me on the following activities: development of treatment plan with patient or surrogate, discussions with consultants including poison control center, evaluation of patient's response to treatment, examination of patient, obtaining history from patient and surrogate, ordering and performing treatments and interventions, ordering and review of laboratory studies, ordering and review of radiographic studies, pulse oximetry, re-evaluation of patient's condition and review of old charts. Disposition Clinical Impression: Suicide attempt by multiple drug overdose, Suicidal ideation, Suicide attempt Disposition: TRANSFER TO PSYCH HOSP/UNIT Condition: Stable Is patient prescribed a controlled substance at d/c from ED?: No Referrals: None,Stated [Primary Care Provider] - 1-2 days
[2018-08-26] MEDS ORDERED: SODIUM CHLORIDE 0.9% 1,000 ML IV STA (23:30)
[2018-08-26 23:58] LABS: Basophils % (A) 1 %; Eosinophils # (A) 0.1 k/uL (0-0.7); Eosinophils % (A) 2 %; HCT 36.9 % (34.0-46.0); HGB 12.4 gm/dL (11.4-16.0); Lymphocytes # (A) 1.6 k/uL (1.0-4.8); Lymphocytes % (A) 32 %; MCH 29.3 pg (25.0-35.0); MCHC 33.5 g/dL (31.0-37.0); MCV 87.3 fL (80.0-100.0); Mean Platelet Volume 6.2; Monocytes # (A) 0.1 k/uL (0-1.0); Monocytes % (A) 2 %; Neutrophils # (A) 3.2 k/uL (1.3-7.7); Neutrophils % (A) 62 %; Platelet Count 241 k/uL (150-450); RBC 4.23 m/uL (3.80-5.40); WBC 5.1 k/uL (3.8-10.6)
[2018-08-27 00:02] LABS: Prothrombin Time 10.9 sec (9.0-12.0)
[2018-08-27 00:09] LABS: ALT 23 U/L (9-52); AST 22 U/L (14-36); Acetaminophen <10.0 ug/mL; Albumin 4.1 g/dL (3.5-5.0); Alkaline Phosphatase 66 U/L (38-126); Anion Gap 9 mmol/L; Blood Urea Nitrogen 8 mg/dL (7-17); Carbon Dioxide 19 mmol/L (22-30); Chloride 114 mmol/L (98-107); Glucose 108 mg/dL (74-99); Potassium 3.3 mmol/L (3.5-5.1); Salicylate <1.0 mg/dL; Sodium 142 mmol/L (137-145); Total Bilirubin 0.4 mg/dL (0.2-1.3); Total Protein 6.9 g/dL (6.3-8.2)
[2018-08-27 00:24] LABS: Alcohol 219 mg/dL
[2018-08-27] MEDS ORDERED: Potassium Replacement Protocol 1 EACH MISC MISCELLANE PRN (00:57)
[2018-08-27] MEDS: POTASSIUM CHLORIDE 10 MEQ in WATER FOR INJECTION 1 100ML.BAG IVPB SCH ×4 (01:37→05:38)
[2018-08-27] MEDS: POTASSIUM CHLORIDE ER 20 MEQ TAB.ER PO SCH ×2 (02:38→06:39)
[2018-08-27] MEDS ORDERED: ALPRAZolam 0.25 MG TAB PO STA (11:02)
[2018-08-27 14:11] LABS: Amphetamine Screen,Urine Not Detected (NotDetected); Barbiturate Screen,Urine Not Detected (NotDetected); Benzodiazepines Screen,Urine Not Detected (NotDetected); Cocaine Screen,Urine Detected (NotDetected); Methadone Screen, Urine Not Detected (NotDetected); Opiate Screen,Urine Not Detected (NotDetected); Oxycodone Screen, Urine Not Detected (NotDetected); Phencyclidine Screen,Urine Not Detected (NotDetected); Tricyclic Antidepressant,Urine Not Detected (NotDetected); Urn Cannabinoid Scrn Detected (NotDetected)
[2018-08-27 18:41] LABS: Appearance,Urine Clear (Clear); Bilirubin,Urine Negative (Negative); Blood,Urine Small (Negative); Color,Urine Yellow; Glucose,Urine (UA) Negative (Negative); Ketones,Urine Negative (Negative); Leukocyte Esterase,Urine Small (Negative); Mucus,Urine Many /hpf; Nitrite,Urine Negative (Negative); PH, Urine 5.5 (5.0-8.0); Protein,Urine Negative (Negative); RBC,Urine 1 /hpf (0-5); Specific Gravity,Urine 1.019 (1.001-1.035); Squamous Epithelial Cell,Urine 4 /hpf (0-4); Urobilinogen,Urine <2.0 mg/dL (<2.0); WBC,Urine 1 /hpf (0-5)
[2018-08-27 18:47] LABS: Amphetamine Screen,Urine Not Detected (NotDetected); Barbiturate Screen,Urine Not Detected (NotDetected); Benzodiazepines Screen,Urine Detected (NotDetected); Cocaine Screen,Urine Detected (NotDetected); Methadone Screen, Urine Not Detected (NotDetected); Opiate Screen,Urine Not Detected (NotDetected); Oxycodone Screen, Urine Not Detected (NotDetected); Phencyclidine Screen,Urine Not Detected (NotDetected); Tricyclic Antidepressant,Urine Not Detected (NotDetected); Urn Cannabinoid Scrn Detected (NotDetected)
[2018-08-28 01:58] VITALS: RESP 18
[2018-08-28] MEDS ORDERED: IBUPROFEN 600 MG TAB PO STA (06:40)
[2018-08-28] MEDS ORDERED: IBUPROFEN 600 MG TAB PO PRN (06:42)
[2018-08-28] MEDS ORDERED: LORazepam 1 MG TAB PO STA ×2 (09:25→17:35)
[2018-08-28] MEDS ORDERED: ALBUTEROL NEBULIZED 2.5 MG/3 ML INHALATION PRN (09:25)
[2018-08-28] MEDS ORDERED: NICOTINE 21MG/24HR PATCH TRANSDERM STA (12:29)
[2018-08-28 15:24] VITALS: BP 132/66; TEMP 98.5
[2018-08-28 15:25] VITALS: PULSE 96
== END 2018-08-28 17:42 ==
LOC: EC 23:18
DX: T43.592A Poisoning by other antipsychotics and neuroleptics, intentional self-harm, initial encounter (principal); M54.30 Sciatica, unspecified side; F17.200 Nicotine dependence, unspecified, uncomplicated; Z86.59 Personal history of other mental and behavioral disorders; Z88.0 Allergy status to penicillin; Z88.5 Allergy status to narcotic agent; Z88.8 Allergy status to other drugs, medicaments and biological substances
CPT/HCPCS: 36415 ×2; 94640; 93005 ×2; 80053; 83735; 85025; 85610; 81001; 81025; 80306 ×2; 83520 ×2; 99291; 96365; 96366 ×3; 96361 ×5; G0480 ×2; S4990; J3480; 80320

== ENCOUNTER 2018-09-17 21:42 | Emergency (ER) | payer OTHER ==
[2018-09-17 22:22] VITALS: TEMP 98.2
[2018-09-17 23:31] LABS: Appearance,Urine Cloudy (Clear); Bilirubin,Urine Negative (Negative); Blood,Urine Small (Negative); Calcium Oxalate Crystals,Urine Many /hpf; Color,Urine Yellow; Glucose,Urine (UA) Negative (Negative); Ketones,Urine Trace (Negative); Leukocyte Esterase,Urine Trace (Negative); Mucus,Urine Moderate /hpf; Nitrite,Urine Negative (Negative); PH, Urine 5.5 (5.0-8.0); Protein,Urine 1+ (Negative); RBC,Urine 2 /hpf (0-5); Specific Gravity,Urine 1.034 (1.001-1.035); Squamous Epithelial Cell,Urine 4 /hpf (0-4)
[2018-09-17] MEDS ORDERED: KETOROLAC 30 MG/ML 1 ML VIAL IVP STA (23:59)
[2018-09-17] MEDS ORDERED: ONDANSETRON 4 MG/2 ML VIAL IVP STA (23:59)
[2018-09-17] MEDS ORDERED: SODIUM CHLORIDE 0.9% 1,000 ML IV STA (23:59)
[2018-09-17] MEDS ORDERED: HYDROmorphone 1 MG/ML 1 ML SYRINGE IVP STA (23:59)
[2018-09-18 00:30] LABS: Basophils % (A) 0 %; Eosinophils # (A) 0.1 k/uL (0-0.7); Eosinophils % (A) 1 %; HGB 11.6 gm/dL (11.4-16.0); Lymphocytes # (A) 2.8 k/uL (1.0-4.8); Lymphocytes % (A) 31 %; MCH 29.3 pg (25.0-35.0); MCHC 33.3 g/dL (31.0-37.0); Mean Platelet Volume 6.9; Monocytes # (A) 0.5 k/uL (0-1.0); Monocytes % (A) 5 %; Neutrophils # (A) 5.7 k/uL (1.3-7.7); Neutrophils % (A) 61 %; Platelet Count 228 k/uL (150-450); RBC 3.98 m/uL (3.80-5.40); WBC 9.3 k/uL (3.8-10.6)
[2018-09-18 00:44] LABS: ALT 16 U/L (9-52); AST 18 U/L (14-36); Albumin 3.6 g/dL (3.5-5.0); Alkaline Phosphatase 57 U/L (38-126); Amylase 67 U/L (30-110); Anion Gap 6 mmol/L; Blood Urea Nitrogen 15 mg/dL (7-17); Carbon Dioxide 26 mmol/L (22-30); Chloride 108 mmol/L (98-107); Glucose 92 mg/dL (74-99); Lipase 343 U/L (23-300); Sodium 140 mmol/L (137-145); Total Bilirubin 0.1 mg/dL (0.2-1.3); Total Protein 6.1 g/dL (6.3-8.2)
--- NOTE | 2018-09-18 02:29 | CT ---
EXAM: CT Abdomen and Pelvis Without Intravenous Contrast CLINICAL HISTORY: Pain TECHNIQUE: Axial computed tomography images of the abdomen and pelvis without intravenous contrast. CTDI is 9.5 mGy and DLP is 599 mGy-cm. This CT exam was performed using one or more of the following dose reduction techniques: automated exposure control, adjustment of the mA and/or kV according to patient size, and/or use of iterative reconstruction technique. COMPARISON: No relevant prior studies available. FINDINGS: Lung bases: Unremarkable. No mass. No consolidation. ABDOMEN: Liver: Unremarkable. Gallbladder and bile ducts: Unremarkable. No calcified stones. No ductal dilation. Pancreas: Unremarkable. No ductal dilation. Spleen: Unremarkable. No splenomegaly. Adrenals: Unremarkable. No mass. Kidneys and ureters: Unremarkable. No obstructing stones. No hydronephrosis. Stomach and bowel: Unremarkable. No obstruction. No mucosal thickening. PELVIS: Appendix: No findings to suggest acute appendicitis. Bladder: Unremarkable. No stones. Reproductive: Unremarkable as visualized. ABDOMEN and PELVIS: Intraperitoneal space: Unremarkable. No free air. No significant fluid collection. Bones/joints: No acute fracture. No dislocation. Soft tissues: Unremarkable. Vasculature: Unremarkable. No abdominal aortic aneurysm. Lymph nodes: Unremarkable. No enlarged lymph nodes. IMPRESSION: No acute abnormality the abdomen or pelvis
--- NOTE | 2018-09-18 02:46 | ED ---
Abdominal Pain HPI - General Chief Complaint: Abdominal Pain Stated Complaint: Abd pain Time Seen by Provider: 09/17/18 23:40 Source: patient Mode of arrival: ambulatory Limitations: no limitations - History of Present Illness Initial Comments: 43-year-old female patient presents to the emergency department today for evaluation of right-sided and lower abdominal pain. Patient states the pain started this evening around 10:30. Patient states she has had pain similar to this in the past with her liver. Patient states she does have a history of alcohol abuse but no longer drinks on a regular basis. She denies any chest pain or shortness of breath with this. States the pain does radiate into her back. Denies any hematuria, dysuria, urinary frequency, urinary urgency. She denies any constipation or diarrhea. States she is nauseated but has not vomited. Denies any history of abdominal surgery. Denies any fevers or chills with this. Patient denies any recent rash, shortness breath, numbness, tingling, dizziness, weakness, headache, visual changes, or any other complaints. - Related Data Home Medications Medication Instructions Recorded Confirmed No Known Home Medications 08/27/18 08/27/18 Allergies Allergy/AdvReac Type Severity Reaction Status Date / Time Penicillins Allergy Severe Anaphylaxis Verified 08/27/18 09:36 codeine Allergy Unknown Verified 08/27/18 09:36 imipramine AdvReac Unknown Verified 08/27/18 09:36 Review of Systems ROS Statement: Those systems with pertinent positive or pertinent negative responses have been documented in the HPI. ROS Other: All systems not noted in ROS Statement are negative. Past Medical History Past Medical History: Asthma, COPD, Musculoskeletal Disorder Additional Past Medical History / Comment(s): spontanious pneumothorax x 5, colitis, chronic back pain, migraines, ddd, History of Any Multi-Drug Resistant Organisms: None Reported Past Surgical History: Tubal Ligation Additional Past Surgical History / Comment(s): 4 chest tubes, Past Anesthesia/Blood Transfusion Reactions: No Reported Reaction Past Psychological History: Anxiety, Depression Smoking Status: Current every day smoker Past Alcohol Use History: Abuse, Daily Past Drug Use History: Marijuana - Past Family History Mother History Unknown: Yes Family Medical History: Asthma, COPD, Hypertension, Myocardial Infarction ([place]) Additional Family Medical History / Comment(s): Arthritis General Exam Limitations: no limitations General appearance: alert, in no apparent distress, other (So well-developed, well-nourished adult female patient in no acute distress. Vital signs upon presentation are temperature 98.2F, pulse 79, respirations 18, blood pressure 117/70, pulse ox 98% on room air.) ENT exam: Present: normal exam, normal oropharynx, mucous membranes moist Respiratory exam: Present: normal lung sounds bilaterally. Absent: respiratory distress, wheezes, rales, rhonchi, stridor Cardiovascular Exam: Present: regular rate, normal rhythm, normal heart sounds. Absent: systolic murmur, diastolic murmur, rubs, gallop, clicks GI/Abdominal exam: Present: soft, tenderness (Generalized), normal bowel sounds. Absent: distended, guarding, rebound, rigid Neurological exam: Present: alert, oriented X3, CN II-XII intact Psychiatric exam: Present: normal affect, normal mood Skin exam: Present: warm, dry, intact, normal color. Absent: rash Course Vital Signs 09/17/18 22:18 Temperature 98.2 F Pulse Rate 79 Respiratory 18 Rate Blood Pressure 117/70 O2 Sat by Pulse 98 Oximetry Medical Decision Making - Medical Decision Making 43-year-old female patient presents to the emergency department today for evaluation of generalized abdominal pain. Physical examination did reveal generalized abdominal tenderness, no guarding no rebound. Labs reviewed and were unremarkable however urine did show possible evidence for kidney stones we did perform CT abdomen and pelvis without contrast. There is no evidence for kidney stone or another acute abnormalities to account for her symptoms. Upon reevaluation patient states pain symptoms are resolved. She is tolerating oral intake. She does feel comfortable being discharged home to follow-up with her primary care physician for further evaluation. She is instructed to follow-up in one to 2 days per Return parameters were discussed in detailed rigid verbalizes understanding and agrees with this plan. - Lab Data Result diagrams: 09/18/18 00:02 09/18/18 00:02 Lab Results 09/17/18 09/17/18 09/18/18 Range/Units 22:22 22:22 00:02 WBC (3.8-10.6) k/uL RBC (3.80-5.40) m/uL Hgb (11.4-16.0) gm/dL Hct (34.0-46.0) % MCV (80.0-100.0) fL MCH (25.0-35.0) pg MCHC (31.0-37.0) g/dL RDW (11.5-15.5) % Plt Count (150-450) k/uL Neutrophils % % Lymphocytes % % Monocytes % % Eosinophils % % Basophils % % Neutrophils # (1.3-7.7) k/uL Lymphocytes # (1.0-4.8) k/uL Monocytes # (0-1.0) k/uL Eosinophils # (0-0.7) k/uL Basophils # (0-0.2) k/uL Sodium 140 (137-145) mmol/L Potassium 4.0 (3.5-5.1) mmol/L Chloride 108 H (98-107) mmol/L Carbon Dioxide 26 (22-30) mmol/L Anion Gap 6 mmol/L BUN 15 (7-17) mg/dL Creatinine 0.65 (0.52-1.04) mg/dL Est GFR (CKD-EPI)AfAm >90 (>60 ml/min/1.73 sqM) Est GFR (CKD-EPI)NonAf >90 (>60 ml/min/1.73 sqM) Glucose 92 (74-99) mg/dL Calcium 9.0 (8.4-10.2) mg/dL Total Bilirubin 0.1 L (0.2-1.3) mg/dL AST 18 (14-36) U/L ALT 16 (9-52) U/L Alkaline Phosphatase 57 (38-126) U/L Troponin I (0.000-0.034) ng/mL Total Protein 6.1 L (6.3-8.2) g/dL Albumin 3.6 (3.5-5.0) g/dL Amylase 67 (30-110) U/L Lipase 343 H (23-300) U/L Urine Color Yellow Urine Appearance Cloudy H (Clear) Urine pH 5.5 (5.0-8.0) Ur Specific Diana 1.034 (1.001-1.035) Urine Protein 1+ H (Negative) Urine Glucose (UA) Negative (Negative) Urine Ketones Trace H (Negative) Urine Blood Small H (Negative) Urine Nitrite Negative (Negative) Urine Bilirubin Negative (Negative) Urine Urobilinogen 2.0 (<2.0) mg/dL Ur Leukocyte Esterase Trace H (Negative) Urine RBC 2 (0-5) /hpf Urine WBC 5 (0-5) /hpf Ur Squamous Epith Cells 4 (0-4) /hpf Calcium Oxalate Crystal Many H (None) /hpf Urine Mucus Moderate H (None) /hpf Urine HCG, Qual Not Detected (Not Detectd) 09/18/18 09/18/18 Range/Units 00:02 00:02 WBC 9.3 (3.8-10.6) k/uL RBC 3.98 (3.80-5.40) m/uL Hgb 11.6 (11.4-16.0) gm/dL Hct 35.0 (34.0-46.0) % MCV 88.0 (80.0-100.0) fL MCH 29.3 (25.0-35.0) pg MCHC 33.3 (31.0-37.0) g/dL RDW 14.0 (11.5-15.5) % Plt Count 228 (150-450) k/uL Neutrophils % 61 % Lymphocytes % 31 % Monocytes % 5 % Eosinophils % 1 % Basophils % 0 % Neutrophils # 5.7 (1.3-7.7) k/uL Lymphocytes # 2.8 (1.0-4.8) k/uL Monocytes # 0.5 (0-1.0) k/uL Eosinophils # 0.1 (0-0.7) k/uL Basophils # 0.0 (0-0.2) k/uL Sodium (137-145) mmol/L Potassium (3.5-5.1) mmol/L Chloride (98-107) mmol/L Carbon Dioxide (22-30) mmol/L Anion Gap mmol/L BUN (7-17) mg/dL Creatinine (0.52-1.04) mg/dL Est GFR (CKD-EPI)AfAm (>60 ml/min/1.73 sqM) Est GFR (CKD-EPI)NonAf (>60 ml/min/1.73 sqM) Glucose (74-99) mg/dL Calcium (8.4-10.2) mg/dL Total Bilirubin (0.2-1.3) mg/dL AST (14-36) U/L ALT (9-52) U/L Alkaline Phosphatase (38-126) U/L Troponin I <0.012 (0.000-0.034) ng/mL Total Protein (6.3-8.2) g/dL Albumin (3.5-5.0) g/dL Amylase (30-110) U/L Lipase (23-300) U/L Urine Color Urine Appearance (Clear) Urine pH (5.0-8.0) Ur Specific Diana (1.001-1.035) Urine Protein (Negative) Urine Glucose (UA) (Negative) Urine Ketones (Negative) Urine Blood (Negative) Urine Nitrite (Negative) Urine Bilirubin (Negative) Urine Urobilinogen (<2.0) mg/dL Ur Leukocyte Esterase (Negative) Urine RBC (0-5) /hpf Urine WBC (0-5) /hpf Ur Squamous Epith Cells (0-4) /hpf Calcium Oxalate Crystal (None) /hpf Urine Mucus (None) /hpf Urine HCG, Qual (Not Detectd) - EKG Data -: EKG Interpreted by [place] EKG Comments: EKG obtained at 00 14 shows normal sinus rhythm with a ventricular rate of 76, MT interval 156, QRS duration 78, QT 392, QTc [address] elevation or depression. - Radiology Data Radiology results: report reviewed, image reviewed CT abdomen and pelvis without contrast was obtained. Report was reviewed in its entirety. Impression by Dr. Aguirre shows no acute abnormality in the abdomen or pelvis. Disposition Clinical Impression: Abdominal pain Disposition: HOME SELF-CARE Condition: Good Instructions (If sedation given, give patient instructions): Abdominal Pain (ED) Additional Instructions: Increase fluids. Follow-up through primary care physician for recheck tomorrow. Return to the emergency department immediately for any new, worsening, or concerning symptoms. Is patient prescribed a controlled substance at d/c from ED?: No Referrals: None,Stated [Primary Care Provider] - 1-2 days Time of Disposition: 02:47
[2018-09-18 03:17] VITALS: BP 118/73; PULSE 73; RESP 17
== END 2018-09-18 03:26 | disposition home or self-care (01) ==
LOC: EC 21:42
DX: R10.31 Right lower quadrant pain (principal); R11.0 Nausea; R10.817 Generalized abdominal tenderness; F17.200 Nicotine dependence, unspecified, uncomplicated; Z88.0 Allergy status to penicillin; Z88.5 Allergy status to narcotic agent; Z88.8 Allergy status to other drugs, medicaments and biological substances
CPT/HCPCS: 36415; 93005; 80053; 82150; 83690; 84484; 85025; 81001; 81025; 74176; 99284; 96374; 96375 ×2; 96361; J2405; J1885; J1170

== ENCOUNTER 2018-12-30 11:09 | Emergency (ER) | payer OTHER ==
[2018-12-30 11:23] VITALS: TEMP 98.2
[2018-12-30] MEDS ORDERED: KETOROLAC 30 MG/ML 1 ML VIAL IM STA (13:06)
--- NOTE | 2018-12-30 14:15 | CT ---
EXAMINATION TYPE: CT brain wo con DATE OF EXAM: 12/30/2018 COMPARISON: Previous study dated 11/27/2013. HISTORY: Lt ear and jaw pain CT DLP: 1550.3 mGycm Automated exposure control for dose reduction was used. FINDINGS: Central structures are midline. There is no evidence of hydrocephalus. No acute focal lesion, mass ef fect or midline shift is seen. I do not see evidence of intracranial blood. Visualized portions of the paranasal sinuses are clear. There is underaeration of both mastoid air ce lls, worse on the left than the right. This appears chronic. No acute biliary problem is seen on the left. There is a small amount of soft tissue within the middle ear on the right. The ossicles appear intact. IMPRESSION: 1. NORMAL CT SCAN OF THE BRAIN. 2. MINIMAL SOFT TISSUE WITHIN THE MIDDLE EAR ON THE RIGHT. DIRECT VISUALIZATION WOULD BE SUGGESTED.
--- NOTE | 2018-12-30 14:20 | CT ---
EXAMINATION TYPE: CT facial bones wo con DATE OF EXAM: 12/30/2018 COMPARISON: Previous study dated 11/27/2013 HISTORY: Lt ear and jaw pain CT DLP: 1550.3 mGycm Automated exposure control for dose reduction was used. TECHNIQUE: CT scan of the sinuses is performed without contrast, axial images are obtained, coronal r eformatted images are also reviewed. FINDINGS: Visualized portions of the paranasal sinuses are clear. There is underaeration of both mast oid air cells. The ossicles are intact. The soft tissue in the middle ear on the right is not clearly seen on this study. The ossicles appear intact. The attic is at antrum bilaterally is normal. Both s cutum are sharp. The external ears appear unremarkable. There is evidence of degenerative change in t he TMJ joints bilaterally with pseudocystic change on the left. IMPRESSION: 1. EVIDENCE OF CHRONIC MASTOIDITIS. 2. NO DEFINITE MIDDLE EAR PROBLEM. 3. EVIDENCE OF BILATERAL TMJ JOINT ARTHRITIS, WORSE ON THE LEFT THAN THE RIGHT.
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
[2018-12-30 15:17] VITALS: BP 133/76; PULSE 77; RESP 18
== END 2018-12-30 15:16 | disposition home or self-care (01) ==
LOC: EC 11:09
DX: G89.29 Other chronic pain (principal); R68.84 Jaw pain; H92.02 Otalgia, left ear; F17.200 Nicotine dependence, unspecified, uncomplicated; Z88.0 Allergy status to penicillin; Z88.5 Allergy status to narcotic agent; Z88.8 Allergy status to other drugs, medicaments and biological substances
CPT/HCPCS: 70486; 70450; 99283; 96372; J1885

== ENCOUNTER 2019-03-31 19:01 | Emergency (ER) | payer OTHER ==
[2019-03-31 19:04] VITALS: RESP 18; TEMP 97.8
[2019-03-31] MEDS ORDERED: MORPHINE SULFATE 4 MG/ML SYRINGE IV STA (19:22)
--- NOTE | 2019-03-31 19:24 | ED ---
General Adult HPI - General Chief complaint: Fall Stated complaint: Fall-Back pain Time Seen by Provider: 03/31/19 19:05 Source: patient Mode of arrival: ambulatory Limitations: no limitations - History of Present Illness Initial comments: Dictation was produced using [employer] dictation software. please excuse any grammatical, word or spelling errors. Chief Complaint: 44-year-old ex-heroin addict presents with back pain after fall. History of Present Illness: [age]old female she was walking down the steps. She got 2 approximately 6 steps from the bottom floor when she slipped on a hardwood floor because she was wearing socks. Patient states she tumbled down the stairs. Patient denies any loss of consciousness but she did say she struck her head. Patient complains of significant back pain. Patient has had back pain in the past however nothing like this. Patient states she has significant pain especially with standing, ambulating. Patient denies any medications. Denies any focal neurologic deficits. Patient complains of midline lower back pain. Denies any radiation of pain. Pain is worse with flexion at the right hip. The ROS documented in this emergency department record has been reviewed and confirmed by me. Those systems with pertinent positive or negative responses have been documented in the HPI. All other systems are other negative and/or noncontributory. PHYSICAL EXAM: General Impression: Alert and oriented x3, acute distress secondary to pain HEENT: Normocephalic atraumatic, extra-ocular movements intact, pupils equal and reactive to light bilaterally, mucous membranes moist. Cardiovascular: Heart regular rate and rhythm, S1&S2 audible, no murmurs, rubs or gallops Chest: Lungs clear to auscultation bilaterally, no rhonchi, no wheeze, no rales Abdomen: Bowel sounds present, abdomen soft, non-tender, non-distended, no organomegaly Musculoskeletal: Pulses present and equal in all extremities, no peripheral edema, tenderness to the suprapelvic area around the entire lumbar area, positive straight leg tests to the right lower extremity Motor: no focal deficits noted Neurological: CN II-XII grossly intact, no focal motor or sensory deficits noted Skin: Intact with no visualized rashes Psych: Normal affect and mood ED course: 44-year-old female presents with back pain and head injury after fall. As upon arrival are within acceptable limits. Patient in distress at bedside. Laboratory evaluation obtained. Unremarkable. CT of the brain and C-spine chest abdomen pelvis was obtained showing no acute traumatic injuries. Patient given IV analgesia. She is given cold packs. Patient's symptoms are slightly improved. Patient's symptoms likely secondary to acute back strain secondary to fall. Patient told that her symptoms are self limiting and should improve over time. Patient given a Lidoderm patch. Patient counseled on nonprescription symptom control including hot cold packs. Patient given refill for her albuterol inhaler. She is also given a starter pack for tramadol. At time of discharge patient is a albeit with some mild pain symptoms. - Related Data Previous Rx's Medication Instructions Recorded Albuterol Inhaler [Ventolin Hfa 1 - 2 puff INHALATION RT-Q6H PRN 03/31/19 Inhaler] #1 inhaler Allergies Allergy/AdvReac Type Severity Reaction Status Date / Time Penicillins Allergy Severe Anaphylaxis Verified 03/31/19 19:20 codeine AdvReac Itching Verified 03/31/19 19:20 imipramine AdvReac Unknown Verified 03/31/19 19:20 Review of Systems ROS Statement: Those systems with pertinent positive or pertinent negative responses have been documented in the HPI. ROS Other: All systems not noted in ROS Statement are negative. Past Medical History Past Medical History: Asthma, COPD, Musculoskeletal Disorder Additional Past Medical History / Comment(s): spontanious pneumothorax x 5, colitis, chronic back pain, migraines, ddd, History of Any Multi-Drug Resistant Organisms: None Reported Past Surgical History: Tubal Ligation Additional Past Surgical History / Comment(s): 4 chest tubes, Past Anesthesia/Blood Transfusion Reactions: No Reported Reaction Past Psychological History: Anxiety, Depression Smoking Status: Current every day smoker Past Alcohol Use History: Abuse, Daily Past Drug Use History: Marijuana - Past Family History Mother History Unknown: Yes Family Medical History: Asthma, COPD, Hypertension, Myocardial Infarction ([place]) Additional Family Medical History / Comment(s): Arthritis General Exam Limitations: no limitations Course Vital Signs 03/31/19 19:02 Temperature 97.8 F Pulse Rate 90 Respiratory 18 Rate Blood Pressure 117/75 O2 Sat by Pulse 96 Oximetry Medical Decision Making - Lab Data Result diagrams: 03/31/19 19:30 03/31/19 19:30 Lab Results 09/03/31/19 03/31/19 Range/Units 19:30 19:30 19:30 WBC 10.1 (3.8-10.6) k/uL RBC 4.19 (3.80-5.40) m/uL Hgb 11.7 (11.4-16.0) gm/dL Hct 35.6 (34.0-46.0) % MCV 84.9 (80.0-100.0) fL MCH 28.0 (25.0-35.0) pg MCHC 32.9 (31.0-37.0) g/dL RDW 14.3 (11.5-15.5) % Plt Count 282 (150-450) k/uL Neutrophils % 74 % Lymphocytes % 18 % Monocytes % 4 % Eosinophils % 1 % Basophils % 1 % Neutrophils # 7.5 (1.3-7.7) k/uL Lymphocytes # 1.9 (1.0-4.8) k/uL Monocytes # 0.4 (0-1.0) k/uL Eosinophils # 0.1 (0-0.7) k/uL Basophils # 0.1 (0-0.2) k/uL PT 9.8 (9.0-12.0) sec INR 0.9 (<1.2) APTT 24.6 (22.0-30.0) sec Sodium 140 (137-145) mmol/L Potassium 3.5 (3.5-5.1) mmol/L Chloride 106 (98-107) mmol/L Carbon Dioxide 24 (22-30) mmol/L Anion Gap 10 mmol/L BUN 9 (7-17) mg/dL Creatinine 0.64 (0.52-1.04) mg/dL Est GFR (CKD-EPI)AfAm >90 (>60 ml/min/1.73 sqM) Est GFR (CKD-EPI)NonAf >90 (>60 ml/min/1.73 sqM) Glucose 78 (74-99) mg/dL Calcium 9.3 (8.4-10.2) mg/dL Disposition Clinical Impression: Low back strain, Fall Disposition: HOME SELF-CARE Condition: Good Instructions (If sedation given, give patient instructions): Fall Prevention for Older Adults (ED) Prescriptions: Albuterol Inhaler [Ventolin Hfa Inhaler] 1 - 2 puff INHALATION RT-Q6H PRN #1 inhaler PRN Reason: Dyspnea Is patient prescribed a controlled substance at d/c from ED?: No Referrals: None,Stated [Primary Care Provider] - 1-2 days Time of Disposition: 20:54
[2019-03-31 19:41] LABS: Basophils # (A) 0.1 k/uL (0-0.2); Basophils % (A) 1 %; Eosinophils # (A) 0.1 k/uL (0-0.7); Eosinophils % (A) 1 %; HCT 35.6 % (34.0-46.0); HGB 11.7 gm/dL (11.4-16.0); Lymphocytes # (A) 1.9 k/uL (1.0-4.8); Lymphocytes % (A) 18 %; MCHC 32.9 g/dL (31.0-37.0); MCV 84.9 fL (80.0-100.0); Mean Platelet Volume 7.1; Monocytes # (A) 0.4 k/uL (0-1.0); Monocytes % (A) 4 %; Neutrophils # (A) 7.5 k/uL (1.3-7.7); Neutrophils % (A) 74 %; Platelet Count 282 k/uL (150-450); RBC 4.19 m/uL (3.80-5.40); RDW 14.3 % (11.5-15.5); WBC 10.1 k/uL (3.8-10.6)
[2019-03-31 19:49] LABS: INR 0.9 (<1.2); Partial Thromboplastin Time 24.6 sec (22.0-30.0); Prothrombin Time 9.8 sec (9.0-12.0)
[2019-03-31 19:51] LABS: African American GFR (CKD) >90 (>60 ml/min/1.73 sqM); Anion Gap 10 mmol/L; Blood Urea Nitrogen 9 mg/dL (7-17); Calcium 9.3 mg/dL (8.4-10.2); Carbon Dioxide 24 mmol/L (22-30); Chloride 106 mmol/L (98-107); Glucose 78 mg/dL (74-99); Potassium 3.5 mmol/L (3.5-5.1); Sodium 140 mmol/L (137-145)
--- NOTE | 2019-03-31 20:12 | CT ---
EXAMINATION TYPE: CT brain jose rafael wo con DATE OF EXAM: 03/31/2019 COMPARISON: 12/30/[address] scan HISTORY: Pt fell down several stairs, c/o back pain Headache. Neck pain. CT DLP: 1403.5 mGycm Automated exposure control for dose reduction was used. TECHNIQUE: CT scan of the head and cervical spine are performed without contrast. FINDINGS: Ventricles have normal size. There is no mass effect nor midline shift. There is no sign of intracranial hemorrhage. The calvarium appears intact. There is little pneumatization of the masto id sinuses. There is some straightening of the cervical spine. There is disc space narrowing at C5-6 with spur fo rmation. Posterior elements are intact. There is minor hypertrophic cervical facet arthropathy. The s kull base is intact. There is no evidence of cervical spine fracture. There is emphysema and pleural and pulmonary scarring at the lung apices. IMPRESSION: Negative CT scan of the brain. No change. Spondylosis in the cervical spine mainly at C5-6. No fracture. Pulmonary emphysema.
--- NOTE | 2019-03-31 20:18 | CT ---
EXAMINATION TYPE: CT ChestAbdPelvis w con DATE OF EXAM: 03/31/2019 COMPARISON: Abdomen CT scan 09/18/2018 HISTORY: Pt fell down several stairs, c/o back pain CT DLP: 929.6 mGycm Automated exposure control for dose reduction was used. CONTRAST: CT scan of the chest, abdomen and pelvis is performed without Oral Contrast and with IV Contrast, pat ient injected with 100 mL of Isovue 300. FINDINGS: There are emphysematous changes in the upper lobes. There is mild pleural and pulmonary scarring at t he lung apices. There is no evidence of a pulmonary mass. Heart size is normal. There is no pericardi al effusion. There is no pneumothorax. There is no mediastinal adenopathy. There are no hilar masses. Thoracic aorta is intact. Liver spleen pancreas stomach, bladder appear normal. Bile ducts are not dilated. There is no adrenal mass. Kidneys show satisfactory contrast opacification. There is no hydronephrosis. Uterus is anteve rted. There is no free fluid in the pelvis. Bladder distends smoothly. Ureters are not dilated. There is no retroperitoneal adenopathy. There is no inguinal hernia. There is no mesenteric edema. There i s no ascites or free air. Appendix appears normal. Thoracic and lumbar vertebra have fairly normal alignment. There is a degenerative first-degree L4-5 spondylolisthesis. There is no compression fracture. The bony pelvis appears intact. Sacrum is intact . There is old healing fracture right posterior 10th rib. The shoulder joints appear intact. IMPRESSION: There is a mild degenerative first-degree L4-5 spondylolisthesis. No acute bony abnormali ty. No sign of acute abnormality of the chest abdomen pelvis. No acute fracture. Mild pulmonary emphy sema.
[2019-03-31] MEDS ORDERED: LIDOCAINE 5% PATCH TOPICAL STA (20:32)
[2019-03-31] MEDS ORDERED: traMADol 50 MG STARTER PACK 3 TAB BTL PO STA (20:49)
[2019-03-31 20:52] VITALS: BP 138/86; PULSE 83
== END 2019-03-31 21:17 | disposition home or self-care (01) ==
LOC: EC 19:01
DX: S39.012A Strain of muscle, fascia and tendon of lower back, initial encounter (principal); S09.90XA Unspecified injury of head, initial encounter; F17.200 Nicotine dependence, unspecified, uncomplicated; F14.11 Cocaine abuse, in remission; Z88.0 Allergy status to penicillin; Z88.5 Allergy status to narcotic agent; Z88.8 Allergy status to other drugs, medicaments and biological substances; Y93.01 Activity, walking, marching and hiking; W10.9XXA Fall (on) (from) unspecified stairs and steps, initial encounter
CPT/HCPCS: 36415; 80048; 85025; 85610; 85730; 72125; 70450; 71260; 74177; 99284; 96374; J2270; Q9967

== ENCOUNTER 2019-06-01 17:00 | Emergency (ER) | payer OTHER ==
[2019-06-01] MEDS ORDERED: SODIUM CHLORIDE 0.9% 1,000 ML IV STA (17:19)
[2019-06-01] MEDS ORDERED: KETOROLAC 30 MG/ML 1 ML VIAL IVP STA (17:19)
[2019-06-01 17:48] LABS: Basophils # (A) 0.1 k/uL (0-0.2); Basophils % (A) 1 %; Eosinophils # (A) 0.1 k/uL (0-0.7); Eosinophils % (A) 2 %; HCT 36.7 % (34.0-46.0); HGB 12.8 gm/dL (11.4-16.0); Lymphocytes # (A) 1.6 k/uL (1.0-4.8); Lymphocytes % (A) 34 %; MCH 29.9 pg (25.0-35.0); MCHC 34.8 g/dL (31.0-37.0); Mean Platelet Volume 6.5; Monocytes # (A) 0.2 k/uL (0-1.0); Monocytes % (A) 4 %; Neutrophils # (A) 2.7 k/uL (1.3-7.7); Neutrophils % (A) 57 %; Platelet Count 284 k/uL (150-450); RBC 4.27 m/uL (3.80-5.40); RDW 13.3 % (11.5-15.5); WBC 4.8 k/uL (3.8-10.6)
[2019-06-01 17:51] LABS: Appearance,Urine Cloudy (Clear); Bacteria,Urine Rare /hpf; Bilirubin,Urine Negative (Negative); Blood,Urine Negative (Negative); Color,Urine Yellow; Glucose,Urine (UA) Negative (Negative); Ketones,Urine Negative (Negative); Leukocyte Esterase,Urine Negative (Negative); Mucus,Urine Rare /hpf; Nitrite,Urine Negative (Negative); PH, Urine 7.5 (5.0-8.0); Protein,Urine Negative (Negative); RBC,Urine 1 /hpf (0-5); Specific Gravity,Urine 1.014 (1.001-1.035); Squamous Epithelial Cell,Urine 7 /hpf (0-4); Urobilinogen,Urine <2.0 mg/dL (<2.0)
[2019-06-01 17:57] LABS: ALT 17 U/L (9-52); AST 18 U/L (14-36); African American GFR (CKD) >90 (>60 ml/min/1.73 sqM); Albumin 4.3 g/dL (3.5-5.0); Alkaline Phosphatase 61 U/L (38-126); Anion Gap 8 mmol/L; Blood Urea Nitrogen 6 mg/dL (7-17); Calcium 9.4 mg/dL (8.4-10.2); Carbon Dioxide 27 mmol/L (22-30); Chloride 102 mmol/L (98-107); Glucose 81 mg/dL (74-99); Non-African American GFR(CKD) >90 (>60 ml/min/1.73 sqM); Sodium 137 mmol/L (137-145); Total Bilirubin 0.2 mg/dL (0.2-1.3); Total Protein 7.4 g/dL (6.3-8.2)
[2019-06-01] MEDS ORDERED: MORPHINE SULFATE 4 MG/ML SYRINGE IV STA (18:04)
--- NOTE | 2019-06-01 18:11 | ED ---
General Adult HPI - General Chief complaint: Abdominal Pain Stated complaint: Kidney Pain Time Seen by Provider: 06/01/19 17:18 Source: patient Mode of arrival: ambulatory Limitations: no limitations - History of Present Illness Initial comments: Dictation was produced using [employer] dictation software. please excuse any grammatical, word or spelling errors. Chief Complaint: 44-year-old female past medical history of asthma, COPD and kidney stones presents with abdominal pain and right-sided flank pain. History of Present Illness: Patient is a 44-year-old female presents with the aforementioned chief complaint. Patient states her symptoms began today. Patient is pain is localized to the right lower back/flank area. She states it radiates to the groin. Patient has history of kidney stones that was diagnosed 15 years ago. She has not had a kidney stone since. Just complains of right upper quadrant right lower quadrant abdominal pain. Patient states she's having fever chills and night sweats. Patient does report that her symptoms are constant however exacerbated with movement. She states that she has right upper quadrant and right lower quadrant abdominal pain. She does complain of nausea and vomiting. She does report that her symptoms are worse with by mouth intake as well. The ROS documented in this emergency department record has been reviewed and confirmed by me. Those systems with pertinent positive or negative responses have been documented in the HPI. All other systems are other negative and/or noncontributory. PHYSICAL EXAM: General Impression: Alert and oriented x3, not in acute distress HEENT: Normocephalic atraumatic, extra-ocular movements intact, pupils equal and reactive to light bilaterally, mucous membranes moist. Cardiovascular: Heart regular rate and rhythm, S1&S2 audible, no murmurs, rubs or gallops Chest: Lungs clear to auscultation bilaterally, no rhonchi, no wheeze, no rales Abdomen: Bowel sounds present, abdomen soft, non-tender, non-distended, no organomegaly, positive Sexton sign, tenderness to McBurney's point but no rebound tenderness Musculoskeletal: Pulses present and equal in all extremities, no peripheral edema Motor: no focal deficits noted Neurological: CN II-XII grossly intact, no focal motor or sensory deficits noted Skin: Intact with no visualized rashes Psych: Normal affect and mood ED course: 44-year-old female presents with flank pain and abdominal pain. Patient signs upon arrival are within acceptable limits. Laboratory evaluation obtained. CBC, metabolic panel is unremarkable. Urinalysis is negative. No hematuria. Computed tomography scan of the abdomen and pelvis and gallbladder ultrasound was obtained with no acute processes. Patient given IV analgesia and intravenous fluids. Patient observed in emergency department for multiple hours with stable medical condition. Patient clinical presentation likely secondary to acute musculoskeletal strain. O2 take [id number] analgesics. Otherwise she should follow-up with her primary care physician. Return parameters discussed. All cushions answered. - Related Data Previous Rx's Medication Instructions Recorded Albuterol Inhaler [Ventolin Hfa 1 - 2 puff INHALATION RT-Q6H PRN 03/31/19 Inhaler] #1 inhaler Allergies Allergy/AdvReac Type Severity Reaction Status Date / Time Penicillins Allergy Severe Anaphylaxis Verified 06/01/19 17:17 codeine AdvReac Itching Verified 06/01/19 17:17 imipramine AdvReac Unknown Verified 06/01/19 17:17 Review of Systems ROS Statement: Those systems with pertinent positive or pertinent negative responses have been documented in the HPI. ROS Other: All systems not noted in ROS Statement are negative. Past Medical History Past Medical History: Asthma, COPD, Musculoskeletal Disorder Additional Past Medical History / Comment(s): spontanious pneumothorax x 5, colitis, chronic back pain, migraines, ddd, History of Any Multi-Drug Resistant Organisms: None Reported Past Surgical History: Tubal Ligation Additional Past Surgical History / Comment(s): 4 chest tubes, Past Anesthesia/Blood Transfusion Reactions: No Reported Reaction Past Psychological History: Anxiety, Depression Smoking Status: Current every day smoker Past Alcohol Use History: Abuse, Daily Past Drug Use History: Marijuana - Past Family History Mother History Unknown: Yes Family Medical History: Asthma, COPD, Hypertension, Myocardial Infarction ([place]) Additional Family Medical History / Comment(s): Arthritis General Exam Limitations: no limitations Course Vital Signs 06/01/19 17:14 Temperature 97.8 F Pulse Rate 92 Respiratory 20 Rate Blood Pressure 144/82 O2 Sat by Pulse 99 Oximetry Medical Decision Making - Lab Data Result diagrams: 06/01/19 17:37 06/01/19 17:37 Lab Results 06/01/19 06/01/19 06/01/19 Range/Units 17:37 17:37 17:37 WBC 4.8 (3.8-10.6) k/uL RBC 4.27 (3.80-5.40) m/uL Hgb 12.8 (11.4-16.0) gm/dL Hct 36.7 (34.0-46.0) % MCV 86.0 (80.0-100.0) fL MCH 29.9 (25.0-35.0) pg MCHC 34.8 (31.0-37.0) g/dL RDW 13.3 (11.5-15.5) % Plt Count 284 (150-450) k/uL Neutrophils % 57 % Lymphocytes % 34 % Monocytes % 4 % Eosinophils % 2 % Basophils % 1 % Neutrophils # 2.7 (1.3-7.7) k/uL Lymphocytes # 1.6 (1.0-4.8) k/uL Monocytes # 0.2 (0-1.0) k/uL Eosinophils # 0.1 (0-0.7) k/uL Basophils # 0.1 (0-0.2) k/uL Sodium 137 (137-145) mmol/L Potassium 4.0 (3.5-5.1) mmol/L Chloride 102 (98-107) mmol/L Carbon Dioxide 27 (22-30) mmol/L Anion Gap 8 mmol/L BUN 6 L (7-17) mg/dL Creatinine 0.66 (0.52-1.04) mg/dL Est GFR (CKD-EPI)AfAm >90 (>60 ml/min/1.73 sqM) Est GFR (CKD-EPI)NonAf >90 (>60 ml/min/1.73 sqM) Glucose 81 (74-99) mg/dL Calcium 9.4 (8.4-10.2) mg/dL Total Bilirubin 0.2 (0.2-1.3) mg/dL AST 18 (14-36) U/L ALT 17 (9-52) U/L Alkaline Phosphatase 61 (38-126) U/L Total Protein 7.4 (6.3-8.2) g/dL Albumin 4.3 (3.5-5.0) g/dL Lipase 61 (23-300) U/L Urine Color Urine Appearance (Clear) Urine pH (5.0-8.0) Ur Specific Zoe (1.001-1.035) Urine Protein (Negative) Urine Glucose (UA) (Negative) Urine Ketones (Negative) Urine Blood (Negative) Urine Nitrite (Negative) Urine Bilirubin (Negative) Urine Urobilinogen (<2.0) mg/dL Ur Leukocyte Esterase (Negative) Urine RBC (0-5) /hpf Urine WBC (0-5) /hpf Ur Squamous Epith Cells (0-4) /hpf Urine Bacteria (None) /hpf Urine Mucus (None) /hpf Urine HCG, Qual Not Detected (Not Detectd) 06/01/19 Range/Units 17:37 WBC (3.8-10.6) k/uL RBC (3.80-5.40) m/uL Hgb (11.4-16.0) gm/dL Hct (34.0-46.0) % MCV (80.0-100.0) fL MCH (25.0-35.0) pg MCHC (31.0-37.0) g/dL RDW (11.5-15.5) % Plt Count (150-450) k/uL Neutrophils % % Lymphocytes % % Monocytes % % Eosinophils % % Basophils % % Neutrophils # (1.3-7.7) k/uL Lymphocytes # (1.0-4.8) k/uL Monocytes # (0-1.0) k/uL Eosinophils # (0-0.7) k/uL Basophils # (0-0.2) k/uL Sodium (137-145) mmol/L Potassium (3.5-5.1) mmol/L Chloride (98-107) mmol/L Carbon Dioxide (22-30) mmol/L Anion Gap mmol/L BUN (7-17) mg/dL Creatinine (0.52-1.04) mg/dL Est GFR (CKD-EPI)AfAm (>60 ml/min/1.73 sqM) Est GFR (CKD-EPI)NonAf (>60 ml/min/1.73 sqM) Glucose (74-99) mg/dL Calcium (8.4-10.2) mg/dL Total Bilirubin (0.2-1.3) mg/dL AST (14-36) U/L ALT (9-52) U/L Alkaline Phosphatase (38-126) U/L Total Protein (6.3-8.2) g/dL Albumin (3.5-5.0) g/dL Lipase (23-300) U/L Urine Color Yellow Urine Appearance Cloudy H (Clear) Urine pH 7.5 (5.0-8.0) Ur Specific Zoe 1.014 (1.001-1.035) Urine Protein Negative (Negative) Urine Glucose (UA) Negative (Negative) Urine Ketones Negative (Negative) Urine Blood Negative (Negative) Urine Nitrite Negative (Negative) Urine Bilirubin Negative (Negative) Urine Urobilinogen <2.0 (<2.0) mg/dL Ur Leukocyte Esterase Negative (Negative) Urine RBC 1 (0-5) /hpf Urine WBC 1 (0-5) /hpf Ur Squamous Epith Cells 7 H (0-4) /hpf Urine Bacteria Rare H (None) /hpf Urine Mucus Rare H (None) /hpf Urine HCG, Qual (Not Detectd) Disposition Clinical Impression: Back strain Disposition: HOME SELF-CARE Condition: Good Is patient prescribed a controlled substance at d/c from ED?: No Referrals: Keyonna Richter MD [Primary Care Provider] - 1-2 days Time of Disposition: 19:40
--- NOTE | 2019-06-01 19:23 | CT ---
EXAMINATION TYPE: CT abdomen pelvis w con DATE OF EXAM: 06/01/2019 COMPARISON: 03/31/2019 HISTORY: Right flank and abdominal pain. CT DLP: 1197 mGycm Automated exposure control for dose reduction was used. TECHNIQUE: Helical acquisition of images was performed from the lung bases through the pelvis. CONTRAST: Performed without Oral Contrast and with IV Contrast, patient injected with 100 mL of Isovu e 300. FINDINGS: LUNG BASES: No acute findings. LIVER/GB: No significant abnormality is appreciated. PANCREAS: No significant abnormality is seen. SPLEEN: No significant abnormality is seen. ADRENALS: No significant abnormality is seen. KIDNEYS: No significant abnormality is seen. PERITONEAL CAVITY: No free air is visualized. Fluid. RETROPERITONEAL ADENOPATHY: None visualized REPRODUCTIVE ORGANS: No significant abnormality is seen URINARY BLADDER: No significant abnormality is seen. PELVIC ADENOPATHY: None visualized. OSSEOUS STRUCTURES: No significant abnormality is seen. BOWEL: There are a few dominant left-sided loops of fluid-filled distended but not dilated small bow el. These are nonspecific findings. On the ipsilateral right the terminal ileum and the appendix and cecum have normal appearance. OTHER: No acute vascular findings. IMPRESSION: NO DEFINITE ACUTE CT PROCESS.
--- NOTE | 2019-06-01 19:28 | US ---
EXAMINATION TYPE: US gallbladder DATE OF EXAM: 06/01/2019 COMPARISON: CT 2019 CLINICAL HISTORY: RUQ pain. Intermittent abdomen pain x couple years, gotten worse in last 3 days, ge ts worse after eating, patient is not NPO: ate a few hours prior to exam. EXAM MEASUREMENTS: Liver Length: 15.4 cm Gallbladder Wall: 0.2 cm CBD: 0.3 cm Right Kidney: 11.4 x 4.5 x 5.0 cm Pancreas: visualized portions wnl, limited by overlying midline bowel gas Liver: mildly course echogenicity Gallbladder: The patient is not NPO. Gallbladder is negative as seen. No cholelithiasis seen. Evidence for sonographic Sexton's sign: Yes, as reported by the senior qa engineer. CBD: Visualized portions negative as seen; limited by overlying bowel gas Right Kidney: No acute process. IMPRESSION: NO DEFINITE ACUTE PROCESS.
[2019-06-01] MEDS ORDERED: traMADol 50 MG STARTER PACK 3 TAB BTL PO STA (19:54)
[2019-06-01 20:03] VITALS: BP 132/84; PULSE 70; RESP 18; TEMP 98.7
== END 2019-06-01 20:03 | disposition home or self-care (01) ==
LOC: EC 17:00
DX: S39.012A Strain of muscle, fascia and tendon of lower back, initial encounter (principal); R10.31 Right lower quadrant pain; G89.29 Other chronic pain; R11.2 Nausea with vomiting, unspecified; R50.9 Fever, unspecified; F17.200 Nicotine dependence, unspecified, uncomplicated; Z88.0 Allergy status to penicillin; Z88.5 Allergy status to narcotic agent; Z88.8 Allergy status to other drugs, medicaments and biological substances; X58.XXXA Exposure to other specified factors, initial encounter; Z87.442 Personal history of urinary calculi
CPT/HCPCS: 36415; 80053; 83690; 85025; 81001; 81025; 76705; 74177; 99284; 96374; 96375; 96361 ×2; J2270; J1885; Q9967

== ENCOUNTER → 2019-08-21 | Outpatient (CLI) | payer OTHER ==
--- NOTE | 2019-08-21 15:47 | XR ---
EXAMINATION TYPE: XR lumbar spine 2 or 3V DATE OF EXAM: 08/21/2019 CLINICAL HISTORY: pain TECHNIQUE: Three views of the lumbar spine are submitted. COMPARISON: None. FINDINGS: There are 5 lumbar type vertebral bodies identified. The lumbar spine shows satisfactory alignment w ithout evidence of acute fracture or dislocation. Vertebral body heights are within normal limits. [id number]-wt-wcztsppy degenerative changes L3-4 through L5-S1. The overlying soft tissue appears unremarka ble. IMPRESSION: No acute fracture or dislocation is seen in the lumbar spine. ICD 10 NO FRACTURE, INITIAL EVALUATION
--- NOTE | 2019-08-21 15:49 | XR ---
EXAMINATION TYPE: XR thoracic spine 2V DATE OF EXAM: 08/21/2019 CLINICAL HISTORY: pain TECHNIQUE: Frontal, lateral, and swimmer's view of thoracic spine are obtained. COMPARISON: None. FINDINGS: Curvature noted convex to the right. Mild scattered degenerative disc space narrowing and s pondylosis. Thoracic spine show satisfactory alignment without evidence of acute fracture or dislocat ion. Vertebral body heights are preserved. Visualized ribs are unremarkable. IMPRESSION: No acute fracture or dislocation is seen in the thoracic spine. ICD 10 NO FRACTURE, INIT IAL EVALUATION
== END | disposition home or self-care (01) ==
LOC: RADXRMAIN 15:08
PROVIDERS: ATTEND Internal Medicine
DX: M54.5 Low back pain (principal)
CPT/HCPCS: 72070; 72100

== ENCOUNTER 2020-02-29 17:11 | Emergency (ER) | payer OTHER ==
[2020-02-29 17:19] VITALS: TEMP 98.2
[2020-02-29] MEDS ORDERED: KETOROLAC 15 MG/ML 1 ML VIAL IM STA (17:24)
[2020-02-29] MEDS ORDERED: HYDROmorphone 1 MG/ML 1 ML SYRINGE IM STA (17:24)
--- NOTE | 2020-02-29 17:29 | ED ---
General Adult HPI - General Chief complaint: Fall Stated complaint: Fall Time Seen by Provider: 02/29/20 17:14 Source: patient, EMS, RN notes reviewed, old records reviewed Mode of arrival: EMS Limitations: no limitations - History of Present Illness Initial comments: Patient is a pleasant 45-year-old female presenting to the emergency Department with back pain. Patient states she tripped over a cat leash yesterday and fell down a couple of stairs. Patient landed on her bottom. Patient does have chronic back pain however back pain is worse than normal. There is radiation of pain towards the left leg. No loss of sensation or weakness. Patient states she is walking fine. Patient states she also struck lightly the left side of her lower head however points to the left upper neck. Patient states no loss of consciousness. No incontinence or retention of urine. Patient states when the EMS picked her up she "sharted ". Patient states she did used to see Dr. Barnes however was discontinued from his service secondary to missing appointments. Patient states she is not process of getting a new pain doctor. - Related Data Previous Rx's Medication Instructions Recorded Albuterol Inhaler (Mhu) [Ventolin 1 - 2 puff INHALATION RT-Q6H PRN 03/31/19 Hfa Inhaler] #1 inhaler predniSONE [Deltasone] 20 mg PO BID #10 tab 02/29/20 Allergies Allergy/AdvReac Type Severity Reaction Status Date / Time Penicillins Allergy Severe Anaphylaxis Verified 06/01/19 17:17 codeine AdvReac Itching Verified 06/01/19 17:17 imipramine AdvReac Unknown Verified 06/01/19 17:17 Review of Systems ROS Statement: Those systems with pertinent positive or pertinent negative responses have been documented in the HPI. ROS Other: All systems not noted in ROS Statement are negative. Constitutional: Denies: fever Eyes: Denies: eye pain ENT: Denies: ear pain Respiratory: Denies: cough Cardiovascular: Denies: chest pain Endocrine: Denies: fatigue Gastrointestinal: Denies: abdominal pain Genitourinary: Denies: dysuria Musculoskeletal: Reports: as per HPI, back pain Skin: Denies: rash Neurological: Denies: weakness, confusion Past Medical History Past Medical History: Asthma, COPD, Musculoskeletal Disorder Additional Past Medical History / Comment(s): spontanious pneumothorax x 5, colitis, chronic back pain, migraines, ddd, History of Any Multi-Drug Resistant Organisms: None Reported Past Surgical History: Tubal Ligation Additional Past Surgical History / Comment(s): 4 chest tubes, Past Anesthesia/Blood Transfusion Reactions: No Reported Reaction Past Psychological History: Anxiety, Bipolar, Depression Smoking Status: Current every day smoker Past Alcohol Use History: Abuse, Daily Past Drug Use History: Marijuana - Past Family History Mother History Unknown: Yes Family Medical History: Asthma, COPD, Hypertension, Myocardial Infarction ([place]) Additional Family Medical History / Comment(s): Arthritis General Exam Limitations: no limitations General appearance: alert Head exam: Present: atraumatic, normocephalic Eye exam: Present: normal appearance, PERRL Neck exam: Present: normal inspection, tenderness (Mild tenderness left upper cervical spine) Respiratory exam: Present: normal lung sounds bilaterally Cardiovascular Exam: Present: regular rate, normal rhythm GI/Abdominal exam: Present: soft. Absent: tenderness Rectal exam: Present: normal rectal tone, other (No stool in patient's undergarments. Sensation intact.) Extremities exam: Present: normal inspection, full ROM. Absent: tenderness Back exam: Present: tenderness (Patient does have moderate tenderness L5 region) Neurological exam: Present: alert, oriented X3, CN II-XII intact. Absent: motor sensory deficit Expanded Speech: Present: fluid speech Sensory exam: Upper Extremity Light Touch: Normal, Lower Extremity Light Touch: Normal Motor strength exam: RUE: 5, LUE: 5, RLE: 5, LLE: 5 Eye Response: (4) open spontaneously Motor Response: (6) obeys commands Verbal Response: (5) oriented Psychiatric exam: Present: anxious Skin exam: Present: normal color Course Vital Signs 02/29/20 02/29/20 17:15 17:41 Temperature 98.2 F Pulse Rate 80 76 Respiratory 21 19 Rate Blood Pressure 150/88 109/70 O2 Sat by Pulse 100 100 Oximetry Medical Decision Making - Medical Decision Making Patient reevaluated and resting comfortably in bed. Symptoms improved with pain medication. Patient updated on results and is comfortable with discharge home. - Radiology Data Radiology results: report reviewed (Negative computed tomography scan of the brain. Mild spinal changes C4-C5 and C5-C6. No fracture. Pulmonary emphysema and fibrosis. No change from previous. Lumbar spine CT shows degenerative fir st-degree L4-L5 spinal listhesis. Mild degenerative disc changes mild facet arthropathy. No change compared to old CT.) Disposition Clinical Impression: Fall, Lumbar radicular pain Disposition: HOME SELF-CARE Condition: Stable Instructions (If sedation given, give patient instructions): Back Pain (ED), Lumbar Radiculopathy (ED) Additional Instructions: Please follow-up with primary care physician on Tuesday. Return for weakness, loss of control of bowel or bladder, loss of sensation, worsening or change in symptoms or other concerns. Prescriptions sent to [facility] Prescriptions: predniSONE [Deltasone] 20 mg PO BID #10 tab Is patient prescribed a controlled substance at d/c from ED?: No Referrals: Keyonna Richter MD [Primary Care Provider] - 1-2 days Time of Disposition: 18:07
[2020-02-29 17:41] VITALS: BP 109/70; PULSE 76; RESP 19
--- NOTE | 2020-02-29 17:54 | CT ---
EXAMINATION TYPE: CT brain cspine wo con DATE OF EXAM: 02/29/2020 COMPARISON: 03/31/2019 HISTORY: fall Headache. Neck pain CT DLP: 1270.7 mGycm Automated exposure control for dose reduction was used. The ventricles and sulci appear normal. There is no mass effect nor midline shift. There is no sign o f intracranial hemorrhage. Calvarium is intact. Skull base is intact. Cervical vertebra show some straightening. There is disc space narrowing at C5-6 with spurring of the endplates. There is minor spurring also at C4-5. There is no compression fracture. Facet joints are intact. There is minimal facet arthropathy. Prevertebral soft tissues are intact. There is emphysema at the lung apices. There is pleural and pulmonary scarring at the lung apices. IMPRESSION: Negative CT scan of the brain. Mild spondylotic changes at C4-5 and C5-6. No fracture. Pulmonary emphysema and pulmonary fibrosis. N o change compared to old exam.
--- NOTE | 2020-02-29 18:01 | CT ---
EXAMINATION TYPE: CT lumbar spine wo con DATE OF EXAM: 02/29/2020 COMPARISON: CT scan 06/01/2019 HISTORY: fall CT DLP: 1394.6 mGycm Automated exposure control for dose reduction was used. Images were obtained from T11 to L5 vertebra without contrast. Lumbar vertebra have fairly normal alignment. There is a few millimeter anterior subluxation of L4 in relation L5. There is narrowing of L5-S1 disc space with vacuum disc and spurring. There is no lumba r paraspinal mass. There is no compression fracture. There is no evidence of spondylolysis. There is hypertrophic facet arthropathy in the lumbar spine at L4-5 and L5-S1. There is developmentally adequa te spinal canal. There is no spinal stenosis. I see no bony destructive process. Sacroiliac joints ar e intact. IMPRESSION: There is a degenerative first-degree L4-5 spondylolisthesis. Mild degenerative disc changes in the lo wer lumbar spine. Mild facet arthropathy. No change compared to old CT scan. No acute bony abnormalit y. Sacrum not included on this exam.
[2020-02-29] MEDS ORDERED: LIDOCAINE 5% PATCH TOPICAL STA (18:05)
[2020-02-29] MEDS ORDERED: traMADol 50 MG STARTER PACK 3 TAB BTL PO STA (18:06)
== END 2020-02-29 18:13 | disposition home or self-care (01) ==
LOC: EC 17:11
DX: M51.16 Intervertebral disc disorders with radiculopathy, lumbar region (principal); F17.200 Nicotine dependence, unspecified, uncomplicated; Z88.0 Allergy status to penicillin; Z88.5 Allergy status to narcotic agent; Z88.8 Allergy status to other drugs, medicaments and biological substances
CPT/HCPCS: 72125; 72131; 70450; 96372 ×2; 99284; J1170; J1885

== ENCOUNTER 2020-06-12 12:24 | Emergency (ER) | payer OTHER ==
[2020-06-12 12:33] VITALS: RESP 18; TEMP 97.9
[2020-06-12] MEDS ORDERED: ONDANSETRON 4 MG/2 ML VIAL IVP STA (12:42)
[2020-06-12] MEDS ORDERED: KETOROLAC 15 MG/ML 1 ML VIAL IVP STA (12:43)
--- NOTE | 2020-06-12 12:44 | ED ---
Upper Extremity HPI - General Chief Complaint: Extremity Problem,Nontraumatic Stated Complaint: Hand swelling Time Seen by Provider: 06/12/20 12:35 Source: EMS Mode of arrival: EMS Limitations: no limitations - History of Present Illness Initial Comments: 45-year-old female presenting to emergency Department with a chief complaint of right hand swelling. Patient states this started about 2 days ago when she was cleaning out the basement and believes that she was bitten by a spider. Patient reports the swelling is located throughout her whole right hand. States initially started as a localized reaction on the dorsal aspect of the right third MCP joint. Patient reports no swelling is throughout. Reports the ear is very tender to touch. Also reports the pain is now moving proximally in the arm. She denies taking any medication to alleviate the symptoms. Denies numbness or tingling. Denies any discharge from the erythematous site. Denies any injury to the arm. Denies fever chills at home. No history of IV drug use - Related Data Previous Rx's Medication Instructions Recorded Albuterol Inhaler (Mhu) [Ventolin 1 - 2 puff INHALATION RT-Q6H PRN 03/31/19 Hfa Inhaler] #1 inhaler predniSONE [Deltasone] 20 mg PO BID #10 tab 02/29/20 Sulfamethox-Tmp 800-160Mg [Bactrim 1 each PO Q12HR #20 tab 06/12/20 Ds] diphenhydrAMINE [Benadryl] 50 mg PO QID PRN #20 capsule 06/12/20 Allergies Allergy/AdvReac Type Severity Reaction Status Date / Time Penicillins Allergy Severe Anaphylaxis Verified 06/12/20 12:34 codeine AdvReac Itching Verified 06/12/20 12:34 imipramine AdvReac Unknown Verified 06/12/20 12:34 Review of Systems ROS Statement: Those systems with pertinent positive or pertinent negative responses have been documented in the HPI. ROS Other: All systems not noted in ROS Statement are negative. Past Medical History Past Medical History: Asthma, COPD, Musculoskeletal Disorder Additional Past Medical History / Comment(s): spontanious pneumothorax x 5, colitis, chronic back pain, migraines, ddd, past hx ETOH sober for 4 years History of Any Multi-Drug Resistant Organisms: None Reported Past Surgical History: Tubal Ligation Additional Past Surgical History / Comment(s): 4 chest tubes, Past Anesthesia/Blood Transfusion Reactions: No Reported Reaction Past Psychological History: Anxiety, Bipolar, Depression Smoking Status: Current every day smoker Past Alcohol Use History: None Reported Past Drug Use History: Marijuana - Past Family History Mother History Unknown: Yes Family Medical History: Asthma, COPD, Hypertension, Myocardial Infarction ([place]) Additional Family Medical History / Comment(s): Arthritis General Exam Limitations: no limitations General appearance: alert, in no apparent distress Head exam: Present: atraumatic, normocephalic, normal inspection Eye exam: Present: normal appearance, PERRL, EOMI Pupils: Present: normal accommodation ENT exam: Present: normal exam, normal oropharynx, mucous membranes moist, TM's normal bilaterally, normal external ear exam Neck exam: Present: normal inspection, full ROM. Absent: tenderness Respiratory exam: Present: normal lung sounds bilaterally. Absent: respiratory distress, wheezes, rales Cardiovascular Exam: Present: regular rate, normal rhythm, normal heart sounds. Absent: systolic murmur, diastolic murmur Extremities exam: Present: full ROM (Full range of motion in the wrist and fingers of right hand.), tenderness (Very tender to touch in the region of erythema.), normal capillary refill, other (+2 ulnar radial pulses bilaterally.). Absent: normal inspection (Swelling of the right hand. Localized erythematous reaction over the dorsal aspect of the right third MCP joint. No signs of discharge. About 3 similar diameter of erythema. Rest of the hand is swollen but not erythematous.), pedal edema, joint swelling, calf tenderness Back exam: Present: normal inspection, full ROM. Absent: tenderness, CVA tenderness (R), CVA tenderness (L) Neurological exam: Present: alert, oriented X3 Psychiatric exam: Present: normal affect, normal mood Skin exam: Present: warm, dry, intact, normal color Course Vital Signs 06/12/20 06/12/20 12:29 13:57 Temperature 97.9 F Pulse Rate 70 74 Respiratory 18 18 Rate Blood Pressure 128/78 136/91 O2 Sat by Pulse 100 100 Oximetry Medical Decision Making - Medical Decision Making 45-year-old female presenting to the emergency room with a chief complaint of hand swelling. On physical examination, she does have swelling of the right hand with a region of erythema on the dorsal aspect of the right third MCP joint. This could be a potential insect bite, however I don't think this is related to a brown recluse. CBC reveals no leukocytosis. CMP is unremarkable. Patient will be started on Bactrim to cover for any possible MRSA infections. I applied ice compress when I initially evaluated the patient. On reevaluation, the hand swelling has gradually decreased. Also give the patient Toradol for pain. She did report improvement in symptoms. Patient was advised to continue taking the medication alternate between Tylenol and Motrin for pain control. Strict return parameters were thoroughly discussed the patient was understanding and agreeable. Case discussed with physician. - Lab Data Result diagrams: 06/12/20 12:53 06/12/20 12:53 Lab Results 06/12/20 06/12/20 06/12/20 Range/Units 12:47 12:53 12:53 WBC 7.5 (3.8-10.6) k/uL RBC 4.52 (3.80-5.40) m/uL Hgb 13.0 (11.4-16.0) gm/dL Hct 38.4 (34.0-46.0) % MCV 85.0 (80.0-100.0) fL MCH 28.6 (25.0-35.0) pg MCHC 33.7 (31.0-37.0) g/dL RDW 13.2 (11.5-15.5) % Plt Count 267 (150-450) k/uL MPV 6.9 Neutrophils % 75 % Lymphocytes % 16 % Monocytes % 5 % Eosinophils % 3 % Basophils % 1 % Neutrophils # 5.6 (1.3-7.7) k/uL Lymphocytes # 1.2 (1.0-4.8) k/uL Monocytes # 0.4 (0-1.0) k/uL Eosinophils # 0.2 (0-0.7) k/uL Basophils # 0.1 (0-0.2) k/uL Sodium 135 L (137-145) mmol/L Potassium 4.1 (3.5-5.1) mmol/L Chloride 104 (98-107) mmol/L Carbon Dioxide 28 (22-30) mmol/L Anion Gap 3 mmol/L BUN 12 (7-17) mg/dL Creatinine 0.59 (0.52-1.04) mg/dL Est GFR (CKD-EPI)AfAm >90 (>60 ml/min/1.73 sqM) Est GFR (CKD-EPI)NonAf >90 (>60 ml/min/1.73 sqM) Glucose 87 (74-99) mg/dL Plasma Lactic Acid Wayne 0.7 (0.7-2.0) mmol/L Calcium 9.0 (8.4-10.2) mg/dL Total Bilirubin 0.4 (0.2-1.3) mg/dL AST 25 (14-36) U/L ALT 14 (4-34) U/L Alkaline Phosphatase 70 (38-126) U/L Total Protein 6.9 (6.3-8.2) g/dL Albumin 4.1 (3.5-5.0) g/dL Disposition Clinical Impression: Swelling of right hand, Insect bite Disposition: HOME SELF-CARE Condition: Stable Instructions (If sedation given, give patient instructions): Insect Bite or Sting (ED) Additional Instructions: Take prescribed medication as directed. Apply ice compress. Follow with the primary care physician. Return to emergency department if symptoms worsen. Prescriptions: Sulfamethox-Tmp 800-160Mg [Bactrim Ds] 1 each PO Q12HR #20 tab diphenhydrAMINE [Benadryl] 50 mg PO QID PRN #20 capsule PRN Reason: Rash Is patient prescribed a controlled substance at d/c from ED?: No Referrals: Keyonna Richter MD [Primary Care Provider] - 1-2 days Time of Disposition: 13:42
[2020-06-12 13:18] LABS: Basophils # (A) 0.1 k/uL (0-0.2); Basophils % (A) 1 %; Eosinophils # (A) 0.2 k/uL (0-0.7); Eosinophils % (A) 3 %; HCT 38.4 % (34.0-46.0); Lymphocytes # (A) 1.2 k/uL (1.0-4.8); Lymphocytes % (A) 16 %; MCH 28.6 pg (25.0-35.0); MCHC 33.7 g/dL (31.0-37.0); Mean Platelet Volume 6.9; Monocytes # (A) 0.4 k/uL (0-1.0); Monocytes % (A) 5 %; Neutrophils # (A) 5.6 k/uL (1.3-7.7); Neutrophils % (A) 75 %; Platelet Count 267 k/uL (150-450); RBC 4.52 m/uL (3.80-5.40); RDW 13.2 % (11.5-15.5); WBC 7.5 k/uL (3.8-10.6)
[2020-06-12 13:27] LABS: ALT 14 U/L (4-34); AST 25 U/L (14-36); African American GFR (CKD) >90 (>60 ml/min/1.73 sqM); Albumin 4.1 g/dL (3.5-5.0); Alkaline Phosphatase 70 U/L (38-126); Anion Gap 3 mmol/L; Blood Urea Nitrogen 12 mg/dL (7-17); Carbon Dioxide 28 mmol/L (22-30); Chloride 104 mmol/L (98-107); Glucose 87 mg/dL (74-99); Non-African American GFR(CKD) >90 (>60 ml/min/1.73 sqM); Potassium 4.1 mmol/L (3.5-5.1); Sodium 135 mmol/L (137-145); Total Bilirubin 0.4 mg/dL (0.2-1.3); Total Protein 6.9 g/dL (6.3-8.2)
[2020-06-12 13:58] VITALS: BP 136/91; PULSE 74
== END 2020-06-12 13:58 | disposition home or self-care (01) ==
LOC: EC 12:24
DX: S40.861A Insect bite (nonvenomous) of right upper arm, initial encounter (principal); M79.89 Other specified soft tissue disorders; F17.200 Nicotine dependence, unspecified, uncomplicated; Z88.0 Allergy status to penicillin; Z88.5 Allergy status to narcotic agent; Z88.8 Allergy status to other drugs, medicaments and biological substances; W57.XXXA Bitten or stung by nonvenomous insect and other nonvenomous arthropods, initial encounter
CPT/HCPCS: 36415; 80053; 83605; 85025; 87040; 99283; 96374; 96375; J2405; J1885

== ENCOUNTER 2020-06-14 20:05 | Inpatient (IN) | payer OTHER ==
[2020-06-14] MEDS ORDERED: VANCOMYCIN IV PER PHARMACY 1 EACH MISC MISCELLANE PRN (20:47)
[2020-06-14] MEDS ORDERED: HYDROmorphone 1 MG/ML 1 ML SYRINGE IVP STA (20:48)
[2020-06-14] MEDS ORDERED: VANCOMYCIN 1,500 MG in SODIUM CHLORIDE 0.9% 500 ML 500 ML IVPB STA (20:56)
[2020-06-14] MEDS ORDERED: SODIUM CHLORIDE 0.9% IVPB STA (21:02)
[2020-06-14] MEDS ORDERED: VANCOMYCIN IVPB STA (21:02)
[2020-06-14] MEDS: SODIUM CHLORIDE 0.9% 500 ML 500 ML IV SCH ×4 (21:14→22:53)
--- NOTE | 2020-06-14 21:21 | ED ---
General Adult HPI - General Chief complaint: Skin/Abscess/Foreign Body Stated complaint: Revisit, right hand spider bite Time Seen by Provider: 06/14/20 20:20 Source: patient, RN notes reviewed, old records reviewed Mode of arrival: ambulatory Limitations: no limitations - History of Present Illness Initial comments: Patient is a 45-year-old female who presents emergency department today with complaints of right hand pain and swelling. She believes that she was bit by a spider and was seen in emergency department 2 days ago. At that time Patient w as started on antibiotics. She reports that since taking the antibiotic she's had worsening redness pain and swelling to the right hand. She reports an abscess development over the third knuckle. Patient states that she has pain with range of motion of her fingertips and feels like her fingertips have poor sensation. Patient states that she is right-handed. She denies any IV drug use. - Related Data Previous Rx's Medication Instructions Recorded Albuterol Inhaler (Mhu) [Ventolin 1 - 2 puff INHALATION RT-Q6H PRN 03/31/19 Hfa Inhaler] #1 inhaler predniSONE [Deltasone] 20 mg PO BID #10 tab 02/29/20 Sulfamethox-Tmp 800-160Mg [Bactrim 1 each PO Q12HR #20 tab 06/12/20 Ds] diphenhydrAMINE [Benadryl] 50 mg PO QID PRN #20 capsule 06/12/20 Allergies Allergy/AdvReac Type Severity Reaction Status Date / Time Penicillins Allergy Severe Anaphylaxis Verified 06/14/20 20:14 codeine AdvReac Itching Verified 06/14/20 20:14 imipramine AdvReac Unknown Verified 06/14/20 20:14 Review of Systems ROS Statement: Those systems with pertinent positive or pertinent negative responses have been documented in the HPI. ROS Other: All systems not noted in ROS Statement are negative. Past Medical History Past Medical History: Asthma, COPD, Musculoskeletal Disorder Additional Past Medical History / Comment(s): spontanious pneumothorax x 5, colitis, chronic back pain, migraines, ddd, past hx ETOH sober for 4 years History of Any Multi-Drug Resistant Organisms: None Reported Past Surgical History: Tubal Ligation Additional Past Surgical History / Comment(s): 4 chest tubes, Past Anesthesia/Blood Transfusion Reactions: No Reported Reaction Past Psychological History: Anxiety, Bipolar, Depression Smoking Status: Current every day smoker Past Alcohol Use History: None Reported Past Drug Use History: Marijuana - Past Family History Mother History Unknown: Yes Family Medical History: Asthma, COPD, Hypertension, Myocardial Infarction ([place]) Additional Family Medical History / Comment(s): Arthritis General Exam - General Exam Comments Initial Comments: 45-year-old female. Alert and oriented 3. No distress. Limitations: no limitations General appearance: alert, in no apparent distress Head exam: Present: atraumatic, normocephalic, normal inspection Eye exam: Present: normal appearance, PERRL, EOMI. Absent: scleral icterus, conjunctival injection, periorbital swelling ENT exam: Present: normal exam, mucous membranes moist Neck exam: Present: normal inspection. Absent: tenderness, meningismus, lymphadenopathy Respiratory exam: Present: normal lung sounds bilaterally. Absent: respiratory distress, wheezes, rales, rhonchi, stridor Cardiovascular Exam: Present: regular rate, normal rhythm, normal heart sounds. Absent: systolic murmur, diastolic murmur, rubs, gallop, clicks GI/Abdominal exam: Present: soft, normal bowel sounds. Absent: distended, tenderness, guarding, rebound, rigid Extremities exam: Present: normal inspection, full ROM, normal capillary refill. Absent: tenderness, pedal edema, joint swelling, calf tenderness Right Upper Arm exam: Present: normal inspection, full ROM, erythema Elbow exam: Present: full ROM. Absent: normal inspection Forearm Wrist exam: Present: normal inspection, full ROM, swelling, erythema (Erythematous streaking over the forearm to the axilla.) Hand Wrist exam: Present: full ROM, swelling (Patient has tenderness and swelling erythema over the dorsum of the hand with a abscess formation over the distal third MCP. ). Absent: normal inspection Neuro motor exam: Present: wrist extension intact, thumb opposition intact, thumb IP flexion intact, thumb adduction intact, fingers 2-5 abduction intact Vascular: Present: normal capillary refill Back exam: Present: normal inspection Neurological exam: Present: alert, oriented X3, CN II-XII intact Psychiatric exam: Present: normal affect, normal mood Skin exam: Present: warm, dry, intact, normal color. Absent: rash Course Vital Signs 06/14/20 20:11 Temperature 98.9 F Pulse Rate 90 Respiratory 20 Rate Blood Pressure 110/53 O2 Sat by Pulse 98 Oximetry Medical Decision Making - Medical Decision Making Patient's a 45-year-old female presents emergency department today with 4 days of right hand swelling. She was seen in emergency department 2 days ago and started on oral antibiotics. She reports worsening redness swelling. She has evidence of an abscess formation over the distal third knuckle. She has had some pain with flexion and extension of the fingers. I did discuss concern for development of tenosynovitis. I discussed the case with Margarito Russo PA-C who recommends admission and IV antibiotics. We'll plan to do surgery tomorrow, and pt is to be NPO at midnight. They request admission for medical management with them on consult. Patient was started on IV Rocephin and vancomycin. Pt will be admitted to [facility] with consult to Ortho and ID. - Lab Data Result diagrams: 06/14/20 21:04 06/14/20 21:04 Lab Results 06/14/20 06/14/20 06/14/20 Range/Units 21:04 21:04 21:04 WBC 10.6 (3.8-10.6) k/uL RBC 4.12 (3.80-5.40) m/uL Hgb 11.7 (11.4-16.0) gm/dL Hct 35.2 (34.0-46.0) % MCV 85.4 (80.0-100.0) fL MCH 28.5 (25.0-35.0) pg MCHC 33.4 (31.0-37.0) g/dL RDW 13.2 (11.5-15.5) % Plt Count 257 (150-450) k/uL MPV 7.2 Neutrophils % 76 % Lymphocytes % 16 % Monocytes % 4 % Eosinophils % 2 % Basophils % 0 % Neutrophils # 8.1 H (1.3-7.7) k/uL Lymphocytes # 1.7 (1.0-4.8) k/uL Monocytes # 0.4 (0-1.0) k/uL Eosinophils # 0.3 (0-0.7) k/uL Basophils # 0.0 (0-0.2) k/uL PT 9.7 (9.0-12.0) sec INR 0.9 (<1.2) APTT 25.1 (22.0-30.0) sec Sodium 137 (137-145) mmol/L Potassium 3.8 (3.5-5.1) mmol/L Chloride 106 (98-107) mmol/L Carbon Dioxide 24 (22-30) mmol/L Anion Gap 7 mmol/L BUN 13 (7-17) mg/dL Creatinine 0.68 (0.52-1.04) mg/dL Est GFR (CKD-EPI)AfAm >90 (>60 ml/min/1.73 sqM) Est GFR (CKD-EPI)NonAf >90 (>60 ml/min/1.73 sqM) Glucose 114 H (74-99) mg/dL Plasma Lactic Acid Wayne (0.7-2.0) mmol/L Calcium 9.2 (8.4-10.2) mg/dL Total Bilirubin 0.3 (0.2-1.3) mg/dL AST 32 (14-36) U/L ALT 19 (4-34) U/L Alkaline Phosphatase 84 (38-126) U/L Total Protein 6.8 (6.3-8.2) g/dL Albumin 4.0 (3.5-5.0) g/dL 06/14/20 Range/Units 21:04 WBC (3.8-10.6) k/uL RBC (3.80-5.40) m/uL Hgb (11.4-16.0) gm/dL Hct (34.0-46.0) % MCV (80.0-100.0) fL MCH (25.0-35.0) pg MCHC (31.0-37.0) g/dL RDW (11.5-15.5) % Plt Count (150-450) k/uL MPV Neutrophils % % Lymphocytes % % Monocytes % % Eosinophils % % Basophils % % Neutrophils # (1.3-7.7) k/uL Lymphocytes # (1.0-4.8) k/uL Monocytes # (0-1.0) k/uL Eosinophils # (0-0.7) k/uL Basophils # (0-0.2) k/uL PT (9.0-12.0) sec INR (<1.2) APTT (22.0-30.0) sec Sodium (137-145) mmol/L Potassium (3.5-5.1) mmol/L Chloride (98-107) mmol/L Carbon Dioxide (22-30) mmol/L Anion Gap mmol/L BUN (7-17) mg/dL Creatinine (0.52-1.04) mg/dL Est GFR (CKD-EPI)AfAm (>60 ml/min/1.73 sqM) Est GFR (CKD-EPI)NonAf (>60 ml/min/1.73 sqM) Glucose (74-99) mg/dL Plasma Lactic Acid Wayne 1.4 (0.7-2.0) mmol/L Calcium (8.4-10.2) mg/dL Total Bilirubin (0.2-1.3) mg/dL AST (14-36) U/L ALT (4-34) U/L Alkaline Phosphatase (38-126) U/L Total Protein (6.3-8.2) g/dL Albumin (3.5-5.0) g/dL - Radiology Data Radiology results: report reviewed Patient's hand x-ray shows soft tissue swelling with no fracutre. Disposition Clinical Impression: Swelling of right hand, Hand abscess, Failure of outpatient treatment Disposition: ADMITTED IP TO THIS [facility] Condition: Stable Instructions (If sedation given, give patient instructions): Abscess (ED) Is patient prescribed a controlled substance at d/c from ED?: No Referrals: Keyonna Richter MD [Primary Care Provider] - 1-2 days Time of Disposition: 22:24
[2020-06-14 21:24] LABS: Basophils % (A) 0 %; Eosinophils # (A) 0.3 k/uL (0-0.7); Eosinophils % (A) 2 %; HCT 35.2 % (34.0-46.0); HGB 11.7 gm/dL (11.4-16.0); Lymphocytes # (A) 1.7 k/uL (1.0-4.8); Lymphocytes % (A) 16 %; MCH 28.5 pg (25.0-35.0); MCHC 33.4 g/dL (31.0-37.0); MCV 85.4 fL (80.0-100.0); Mean Platelet Volume 7.2; Monocytes # (A) 0.4 k/uL (0-1.0); Monocytes % (A) 4 %; Neutrophils # (A) 8.1 k/uL (1.3-7.7); Neutrophils % (A) 76 %; Platelet Count 257 k/uL (150-450); RBC 4.12 m/uL (3.80-5.40); RDW 13.2 % (11.5-15.5); WBC 10.6 k/uL (3.8-10.6)
[2020-06-14 21:34] LABS: ALT 19 U/L (4-34); AST 32 U/L (14-36); African American GFR (CKD) >90 (>60 ml/min/1.73 sqM); Alkaline Phosphatase 84 U/L (38-126); Anion Gap 7 mmol/L; Blood Urea Nitrogen 13 mg/dL (7-17); Calcium 9.2 mg/dL (8.4-10.2); Carbon Dioxide 24 mmol/L (22-30); Chloride 106 mmol/L (98-107); Glucose 114 mg/dL (74-99); Non-African American GFR(CKD) >90 (>60 ml/min/1.73 sqM); Potassium 3.8 mmol/L (3.5-5.1); Sodium 137 mmol/L (137-145); Total Bilirubin 0.3 mg/dL (0.2-1.3); Total Protein 6.8 g/dL (6.3-8.2)
[2020-06-14 21:36] LABS: INR 0.9 (<1.2); Partial Thromboplastin Time 25.1 sec (22.0-30.0); Prothrombin Time 9.7 sec (9.0-12.0)
--- NOTE | 2020-06-14 21:45 | XR ---
EXAMINATION TYPE: XR hand complete RT DATE OF EXAM: 06/14/2020 COMPARISON: NONE HISTORY: Pain and swelling in the third MP joint TECHNIQUE: 3 views FINDINGS: Metacarpals are intact. There is significant soft tissue swelling on the dorsum of the hand . I see no fracture nor dislocation. Joint spaces are fairly normal. Carpal bones are intact. Exam li mited by flexion of the fingers. IMPRESSION: Soft tissue swelling. No fracture.
[2020-06-14] MEDS ORDERED: NALOXONE 0.4 MG/ML 1 ML VIAL IV PRN (22:25)
[2020-06-14] MEDS ORDERED: HYDROmorphone 0.5 MG/0.5 ML SYRINGE IVP PRN (22:25)
[2020-06-14] MEDS ORDERED: ONDANSETRON 4 MG/2 ML VIAL IVP PRN (22:25)
[2020-06-14] MEDS ORDERED: ACETAMINOPHEN TAB 325 MG TAB PO PRN (22:25)
[2020-06-14] MEDS ORDERED: IBUPROFEN 400 MG TAB PO PRN (22:25)
[2020-06-14] MEDS ORDERED: TEMAZEPAM 15 MG CAP PO PRN (22:25)
[2020-06-14] MEDS: SODIUM CHLORIDE 0.9% 1,000 ML IV SCH (22:53)
[2020-06-14] MEDS: HYDROmorphone 1 MG/ML 1 ML SYRINGE IVP PRN (22:57)
[2020-06-15] MEDS: HYDROmorphone 1 MG/ML 1 ML SYRINGE IVP PRN ×5 (02:52→16:04)
[2020-06-15] MEDS ORDERED: SODIUM CHLORIDE 0.9% IVPB SCH (06:00)
[2020-06-15] MEDS ORDERED: VANCOMYCIN IVPB SCH (06:00)
[2020-06-15] MEDS: VANCOMYCIN 1,500 MG in SODIUM CHLORIDE 0.9% 250 ML IVPB SCH ×3 (06:18→22:14)
[2020-06-15] MEDS: PANTOPRAZOLE 40 MG/10 ML VIAL IV SCH (08:39)
--- NOTE | 2020-06-15 11:11 | P.CNOR ---
History of Present Illness - [facility] Consult date: 06/15/20 Consult reason: other (Right hand abscess) History of present illness: Patient is a 45-year-old female who was admitted to [facility] last night with regards to an abscess of her right hand. Patient was seen earlier in the week at [facility]'s emergency room due to redness and swelling in the right hand, she was started on oral antibiotics. Over the last few days, the symptoms have worsened along with pain and swelling so she reported back to the hospital. According to the patient, she was moving some wood at her friend's house on Tuesday, she think she possibly may been bitten by a spider. She denies any illicit IV drug use. I was contacted by the emergency room staff last night regarding the patient, she was admitted under internal medicine with our orthopedic team and infectious disease on consult. She was started on IV antibiotics and made nothing by mouth after midnight. Patient was evaluated today in the observation unit, she was in her hospital bed. Patient is very anxious and emotional on exam. She has significant discomfort with regards to the right hand. She has a notable amount of swelling in the wrist and forearm also. She states most of the upper extremity is in pain. Patient denies any previous surgery involving the right upper extremity. She has no fevers or chills at this time. Patient has no other orthopedic complaints this time. Patient does have a significant history with regards to her pulmonary status along with mental health. She states that she hasn't seen a psychiatrist in quite a long time. Past Medical History Past Medical History: Asthma, COPD, Musculoskeletal Disorder Additional Past Medical History / Comment(s): spontanious pneumothorax x 5, colitis, chronic back pain, migraines, ddd, past hx ETOH sober for 4 years History of Any Multi-Drug Resistant Organisms: None Reported Past Surgical History: Tubal Ligation Additional Past Surgical History / Comment(s): 4 chest tubes, Past Anesthesia/Blood Transfusion Reactions: No Reported Reaction Past Psychological History: Anxiety, Bipolar, Depression Smoking Status: Current every day smoker Past Alcohol Use History: None Reported Additional Past Alcohol Use History / Comment(s): 5 tall beers on occasion Past Drug Use History: Marijuana Additional Drug Use History / Comment(s): 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 - Past Family History Mother History Unknown: Yes Family Medical History: Asthma, COPD, Hypertension, Myocardial Infarction ([place]) Additional Family Medical History / Comment(s): Arthritis Medications and Allergies Home Medications Medication Instructions Recorded Confirmed Type diphenhydrAMINE [Benadryl] 50 mg PO QID PRN #20 capsule 06/12/20 06/14/20 Rx Albuterol Sulfate [Proair Hfa] 1 puff INHALATION RT-QID PRN 06/14/20 06/14/20 History Baclofen 10 - 20 mg PO HS PRN 06/14/20 06/14/20 History Buprenorphine HCl/Naloxone HCl 1 tab SL DAILY 06/14/20 06/14/20 History [Zubsolv 1.4-0.36 mg Tablet Sl] Butalb/APAP/Caff 50-325-40Mg 1 tab PO DAILY PRN 06/14/20 06/14/20 History [Fioricet 50-325-40] Diazepam [Valium] 10 mg PO HS 06/14/20 06/14/20 History Gabapentin 300 mg PO BID 06/14/20 06/14/20 History Ibuprofen [Motrin] 800 mg PO TID PRN 06/14/20 06/14/20 History QUEtiapine FUMARATE [SEROquel] 200 mg PO HS 06/14/20 06/14/20 History Sulfamethox-Tmp 800-160Mg [Bactrim 1 tab PO Q12HR 06/14/20 06/14/20 History Ds] Allergies Allergy/AdvReac Type Severity Reaction Status Date / Time Penicillins Allergy Severe Anaphylaxis Verified 06/14/20 20:14 codeine AdvReac Itching Verified 06/14/20 20:14 imipramine AdvReac Unknown Verified 06/14/20 20:14 Physical Examination Right upper extremity: Obvious abscess present on the dorsum of the hand, located near the third MCP joint, there is obvious erythema, fluctuance and skin breakdown. There is no active drainage visualized. There is some generalized erythema on the dorsum of the hand, there is a small amount on the dorsum of the wrist and forearm, is very minimal. Her range of motion is limited with regards to extension and flexion of the fingers due to pain, she is able to do this. Extension and flexion of the wrist and elbow are intact. She is able to actively move the shoulder with minimal discomfort. I'm unable to appreciate any fluctuance with palpation throughout the forearm, elbow, upper arm. There is no shoulder effusion present on exam. Sensory exam to light touch throughout the extremity is intact, the radial ulnar pulses are 2+ Results - Labs Labs: Abnormal Lab Results - Last 24 Hours (Table) 06/14/20 06/14/20 Range/Units 21:04 21:04 Neutrophils # 8.1 H (1.3-7.7) k/uL Glucose 114 H (74-99) mg/dL H & H 06/14/20 Range/Units 21:04 Hgb 11.7 (11.4-16.0) gm/dL Hct 35.2 (34.0-46.0) % Coagulation 06/14/20 Range/Units 21:04 INR 0.9 (<1.2) Result Diagrams: 06/14/20 21:04 06/14/20 21:04 - Diagnostic results Wrist/Hand x-ray: report reviewed, image reviewed Assessment and Plan Assessment: Right hand cellulitis Right hand abscess Other medical comorbidities Plan: I was able to discuss the case, including the physical exam findings and imaging studies my attending Dr. Sun. Patient was admitted to the hospital last night and started on IV antibiotics she was made nothing by mouth was plan for surgical intervention. After discussion with the patient today at bedside, our plan is to proceed with an incision and drainage with irrigation and debridement of the right hand on 06/15/2020. Risk and benefits of the procedure were discussed, this to include but not exclude blood loss, neurovascular injury, pain and stiffness, development of blood clots, need for subsequent surgery. Patient is in good understanding and would like to proceed. Obtain consent Other medical specialty recommendations DVT prophylaxis, plan proceed with subcu medication after surgery Further recommendations to follow Time with Patient: Less than 30
[2020-06-15] MEDS ORDERED: SODIUM CHLORIDE 0.9% 1,000 ML IV ONE (11:52)
[2020-06-15] MEDS ORDERED: PROPOFOL 10 MG/ML 20 ML VIAL IV ONE (12:47)
[2020-06-15] MEDS ORDERED: LIDOCAINE 1% INJ 10MG/ML (20 ML MDV) ONE (12:47)
[2020-06-15] MEDS ORDERED: MIDAZOLAM 2 MG/2 ML VIAL ONE (12:47)
[2020-06-15] MEDS ORDERED: fentaNYL (PF) 50 MCG/ML 2 ML AMP ONE (12:47)
[2020-06-15] MEDS ORDERED: traMADol 50 MG TAB PO PRN (13:31)
--- NOTE | 2020-06-15 13:33 | P.OP ---
Date of Procedure: 06/15/20 Preoperative Diagnosis: Right dorsal hand abscess Postoperative Diagnosis: same Procedure(s) Performed: Incision with irrigation and excisional debridement right dorsal hand abscess Anesthesia: COURTNEYA Surgeon: Jose Sun Trouble Locater #1: Kye Russo Estimated Blood Loss (ml): 5 Pathology: other (Cultures) Condition: stable Disposition: PACU Indications for Procedure: 45-year-old patient seen with a right dorsal hand abscess. We recommended in cision with irrigation debridement. Patient was agreeable, consent was obtained. Operative Findings: See description of procedure Description of Procedure: Patient was taken to the operative suite. Patient underwent a general anesthetic by the department of anesthesia. Well-padded tourniquet placed proximally. Right upper extremity was prepped and draped in the normal sterile orthopedic fashion. I now made a longitudinal incision measuring approximately 34 centimeters over the dorsum of the hand basically central portion of the abscess. We may encounter purulent material which cultures were obtained. I could visualize the dorsal tendons and they appeared intact. Utilizing a 15 blade knife I performed an excisional debridement of the necrotic tissue superficially. The remaining tissue appeared healthy. We now irrigated the wound out copiously. I placed a central drain in the wound. Nylon suture was utilized to loosely approximate the skin. We applied sterile dressings along with antibiotic ointment. No tourniquet was utilized. Margarito SIERRA assisted procedure. The patient was awakened and transferred to a bed and recovery stable condition.
--- NOTE | 2020-06-15 17:42 | P.HPIM ---
History of Present Illness H&P Date: 06/15/20 Chief Complaint: Right hand pain and swelling Mrs. Mays is a 45-year-old female with a past medical history of asthma, COPD, spontaneous pneumothorax 5, chronic low back pain, migraines coming in with a chief complaint of right hand pain and swelling. Patient thinks that she was bit by a spider and was seen in the emergency department 2 days back. At that time she was given antibiotics, she states that she has been taking them but the redness and swelling worsened and so came into the hospital for further evaluation. Patient also mentions that she probably scratched her right hand over something, had an abrasion and then progressed on to have swelling and re dness. Patient denies having any fevers chills or rigors. She denies having any chest pain or palpitations. No cough or difficulty in breathing. Patient denies having any abdominal pain, nausea, vomiting or diarrhea. She denies having any dysuria or hematuria. Patient denies IV drug abuse. In the emergency patient had a temperature of 98.9, heart rate is 90, respiratory rate 20, blood pressure 1 10 x 53, saturating at 9 8% on room air. She had an x-ray of the hand showing soft tissue swelling, joint space is normally fairly and carpal bones intact. Blood work showed white count of 10.6, hemoglobin 11.7. Sodium 137, palpitations 3.8, BNP 13, creatinine 0.68. Review of Systems REVIEW OF SYSTEMS: PSYCH: History of anxiety and depression, no suicidal ideation. NEURO:No c/o weakness of the extremties, No facial droop, No speech abnormalities. VASCULAR: no edema HEMATOLOGIC: No history of easy bleeding and bruising . No recent infections . RESPIRATORY: No cough, No SOB, No chest discomfort. IMMUNE: No infections INTEGUMENT: no rashes OPHTHALMOLOGIC: No blurry vision and no eye discharge : No dysuria or hematuria GRANTS ANALYST: No bleeding PV CARDIAC: No chest pain , shortness of breath , paroxysmal nocturnal dyspnea MUSCULOSKELETAL : As per HPI. GI: No abdominal pain, Nausea or vomiting. No constipation or diarrhea. 13 review of systems are negative except for the ones mentioned above. Past Medical History Past Medical History: Asthma, COPD, Musculoskeletal Disorder Additional Past Medical History / Comment(s): spontanious pneumothorax x 5, colitis, chronic back pain, migraines, ddd, past hx ETOH sober for 4 years History of Any Multi-Drug Resistant Organisms: None Reported Past Surgical History: Tubal Ligation Additional Past Surgical History / Comment(s): 4 chest tubes, Past Anesthesia/Blood Transfusion Reactions: No Reported Reaction Past Psychological History: Anxiety, Bipolar, Depression Smoking Status: Current every day smoker Past Alcohol Use History: None Reported Additional Past Alcohol Use History / Comment(s): 5 tall beers on occasion Past Drug Use History: Marijuana Additional Drug Use History / Comment(s): 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 - Past Family History Mother History Unknown: Yes Family Medical History: Asthma, COPD, Hypertension, Myocardial Infarction (ME) Additional Family Medical History / Comment(s): Arthritis Medications and Allergies Home Medications Medication Instructions Recorded Confirmed Type diphenhydrAMINE [Benadryl] 50 mg PO QID PRN #20 capsule 06/12/20 06/14/20 Rx Albuterol Sulfate [Proair Hfa] 1 puff INHALATION RT-QID PRN 06/14/20 06/14/20 History Baclofen 10 - 20 mg PO HS PRN 06/14/20 06/14/20 History Buprenorphine HCl/Naloxone HCl 1 tab SL DAILY 06/14/20 06/14/20 History [Zubsolv 1.4-0.36 mg Tablet Sl] Butalb/APAP/Caff 50-325-40Mg 1 tab PO DAILY PRN 06/14/20 06/14/20 History [Fioricet 50-325-40] Diazepam [Valium] 10 mg PO HS 06/14/20 06/14/20 History Gabapentin 300 mg PO BID 06/14/20 06/14/20 History Ibuprofen [Motrin] 800 mg PO TID PRN 06/14/20 06/14/20 History QUEtiapine FUMARATE [SEROquel] 200 mg PO HS 06/14/20 06/14/20 History Sulfamethox-Tmp 800-160Mg [Bactrim 1 tab PO Q12HR 06/14/20 06/14/20 History Ds] Allergies Allergy/AdvReac Type Severity Reaction Status Date / Time Penicillins Allergy Severe Anaphylaxis Verified 06/14/20 20:14 codeine AdvReac Itching Verified 06/14/20 20:14 imipramine AdvReac Unknown Verified 06/14/20 20:14 Physical Exam Vitals: Vital Signs Temp Pulse Pulse Resp BP BP Pulse Ox 06/15/20 08:43 97 16 06/15/20 08:41 98.8 F 97 16 124/60 96 06/15/20 03:05 98.9 F 87 18 115/68 99 06/14/20 23:38 98.3 F 86 18 128/80 100 06/14/20 22:50 82 20 108/89 100 06/14/20 20:11 98.9 F 90 20 110/53 98 Intake and Output 06/14/20 06/15/20 06/15/20 22:59 06:59 14:59 Intake Total 10 1500 Balance 10 1500 Intake: IV 10 Invasive Line 1 10 Amount of Fluid Infused ( 1500 ml) Other: Voiding Method Toilet Toilet # Voids 1 1 1 Weight 89.811 kg 89.811 kg PHYSICAL EXAM GEN. APPEARANCE: alert, in no apparent distress HEAD EXAM: atraumatic, normocephalic, normal inspection EYE EXAM: normal appearance, PERRL, EOMI. Absent: scleral icterus, conjunctival injection, periorbital swelling ENT EXAM: normal exam, mucous membranes moist NECK EXAM: normal inspection. Absent: tenderness, meningismus, full ROM, lymphadenopathy RESPIRATORY EXAM: normal lung sounds bilaterally. Absent: respiratory distress, wheezes, rales, rhonchi, stridor CARDIOVASCULAR EXAM: regular rate, normal rhythm, normal heart sounds. Absent: systolic murmur, diastolic murmur, rubs, gallop, clicks GI/ABDOMINAL EXAM: soft, normal bowel sounds. Absent: distended, tenderness, guarding, rebound, rigid EXTREMITIES EXAM: Right upper extremity - swollen compared to left upper extremity. Right hand - wrapped up in a gauze as she just had an I&D done NEUROLOGICAL EXAM: alert, oriented X3, CN II-XII intact, motor sensory deficit PSYCHIATRIC EXAM: normal affect, normal mood SKIN EXAM: warm, dry, intact, normal color. Absent: rash Results CBC & Chem 7: 06/14/20 21:04 06/14/20 21:04 Labs: Abnormal Lab Results - Last 24 Hours (Table) 06/14/20 06/14/20 Range/Units 21:04 21:04 Neutrophils # 8.1 H (1.3-7.7) k/uL Glucose 114 H (74-99) mg/dL Thrombosis Risk Factor Assmnt - Choose All That Apply Each Factor Represents 1 point: Age 41-60 years Other Risk Factors: No Other congenital or acquired thrombophilia - If yes, enter type in comment: No Thrombosis Risk Factor Assessment Total Risk Factor Score: 1 Thrombosis Risk Factor Assessment Level: Low Risk Assessment and Plan Assessment: ASSESSMENT Right hand cellulitis/abscess Asthma/COPD Spontaneous pneumothorax 5 Chronic low back pain Migraine headaches Degenerative joint disease History of alcohol abuse in the past Bipolar disorder Anxiety with depression Nicotine dependence History of heroin abuse in the past PLAN: Orthopedic services have been consulted and patient had incision and drainage of the left hand abscess. She received a dose of ceftriaxone and v ancomycin in the ED. as the right upper arm is swollen compared to the left upper arm, we'll get a Doppler to rule out DVT. Continue with current pain management. GI prophylaxis with Protonix. Further recommendations to follow depending on the progress of the patient.
--- NOTE | 2020-06-15 19:18 | CONS ---
CONSULTATION DATE OF SURGERY: 06/15/2020 REASON FOR CONSULTATION: Right hand abscess. HISTORY OF PRESENT ILLNESS: The patient is a 45-year-old female who noticed an area of irritation at the base of the right middle finger on Tuesday. The patient thought she may have a spider bite as she was living in the basement of her friend. She was noticed to have some swelling and redness. No significant drainage. Patient described the pain to be more of a throbbing almost 10/10 in severity and some chills. The patient was seen in the ER 2 days ago. The patient has been sent home on oral antibiotic. However, the patient stated that she continued to have worsening pain, swelling and redness and some fever at home for which the patient came back to the hospital. The patient described her pain on arrival to the ER was almost 10 out of 10, throbbing associated with swelling and redness but no drainage. The patient on arrival to the ER was afebrile and the patient did have a normal white count. The patient did have x-rays of the hand, soft tissue swelling, no fracture. The patient has been evaluated by Orthopedic Service and the patient was subsequently taken to the OR. The patient is status post I and D of the right dorsum hand abscess. Culture has been taken, currently pending. Patient was started on vancomycin. Infectious Disease was consulted for further management of antibiotic therapy. REVIEW OF SYSTEMS: Positive points have been mentioned in HPI. Rest of systems are negative. PAST MEDICAL HISTORY: Asthma, COPD, spontaneous pneumothorax, colitis and chronic back pain, degenerative joint disease and migraines. History of anxiety and bipolar depression. PAST SURGICAL HISTORY: Tubal ligation. SOCIAL HISTORY: Current every day smoker. Does admit to marijuana use. No drinking. FAMILY HISTORY: Mother history of COPD and asthma and NE. ALLERGIES: CODEINE, IMIPRAMINE, PENICILLIN. MEDICATIONS: Include the patient is currently on: Tylenol, [place], Dilaudid, Motrin, vancomycin pharmacy to dose, Zofran, Protonix and Restoril, Ultram. PHYSICAL EXAMINATION: Blood pressure 120/71, pulse of 82. Temperature is 97.9. She is 99% on room air. General description is a middle-aged female up in the bed in no distress. HEENT examination: No pallor or scleral icterus. Oral mucous membranes dry. No pharyngeal erythema or thrush. NECK: Trachea central. No thyromegaly. LUNGS unlabored breathing. Clear to auscultation anteriorly. No wheeze or crackles. HEART S1, S2. Regular rate and rhythm. ABDOMEN: Soft, no tenderness. No guarding. No rigidity. EXTREMITIES are no edema of the feet. Examination right hand is currently dressed. No drainage on the dressing. LABS: Hemoglobin 11.7, white count 10.6, BUN of 13, creatinine 0.68. Electrolytes have been normal. Cultures are currently pending. DIAGNOSTIC IMPRESSION AND PLAN: Patient with right hand abscess, failing outpatient oral antibiotic therapy, status post drainage of this abscess with cultures currently pending. Likely need to cover for the gram-positive skin brandi such as strep and MSSA/MRSA, failing outpatient oral antibiotic. PLAN: 1. Vancomycin pharmacy to dose target of 15. 2. We will follow on clinical condition and culture to further adjust medication if needed. Thank you for this consultation. Will follow this patient. MMODL / IJN: [id number] /
[2020-06-15] MEDS: HYDROcodone/APAP 5-325MG 1 EACH TAB PO PRN (22:13)
[2020-06-15] MEDS: SODIUM CHLORIDE 0.9% 1,000 ML IV SCH (23:50)
--- NOTE | 2020-06-16 00:08 | CT ---
EXAMINATION TYPE: CT upper extremity RT w con DATE OF EXAM: 06/15/2020 COMPARISON: HISTORY: R/o Infection, swelling CT DLP: 1542.10 mGycm Automated exposure control for dose reduction was used. CONTRAST: Performed with IV Contrast, patient injected with 100 mL of Isovue 300. CT scan the right arm. History spider bite posterior hand. Comparison none. TECHNIQUE: Images were obtained from the top of the shoulder to the tip of the fingers with IV contrast. The shoulder joint is intact. Humerus is intact. Radius and ulna appear intact. There is no fracture nor dislocation. There is diffuse subcutaneous edema around the forearm. There is also subcutaneous edema around the l ower portion of the humerus. I see no discrete abscess. There is no pathologic enhancement. There is normal contrast opacification of the brachial and radial and ulnar arteries. The muscle structures ap pear intact. There is normal contrast opacification of the brachial and axillary arteries and veins. IMPRESSION: Diffuse subcutaneous edema of the right arm. No drainable discrete abscess fluid collection seen. No bony abnormality.
[2020-06-16] MEDS: HYDROmorphone 1 MG/ML 1 ML SYRINGE IVP PRN ×5 (00:23→20:28)
[2020-06-16 00:29] LABS: Basophils % (A) 1 %; Eosinophils # (A) 0.2 k/uL (0-0.7); Eosinophils % (A) 3 %; HCT 29.3 % (34.0-46.0); Lymphocytes # (A) 1.3 k/uL (1.0-4.8); Lymphocytes % (A) 20 %; MCH 29.4 pg (25.0-35.0); MCHC 34.2 g/dL (31.0-37.0); MCV 86.1 fL (80.0-100.0); Mean Platelet Volume 7.1; Monocytes # (A) 0.2 k/uL (0-1.0); Monocytes % (A) 3 %; Neutrophils # (A) 4.5 k/uL (1.3-7.7); Neutrophils % (A) 72 %; Platelet Count 201 k/uL (150-450); RBC 3.41 m/uL (3.80-5.40); RDW 13.2 % (11.5-15.5); WBC 6.3 k/uL (3.8-10.6)
[2020-06-16] MEDS: SODIUM CHLORIDE 0.9% 1,000 ML IV SCH (00:29)
[2020-06-16 00:32] LABS: African American GFR (CKD) >90 (>60 ml/min/1.73 sqM); Anion Gap 1 mmol/L; Blood Urea Nitrogen 5 mg/dL (7-17); Calcium 8.1 mg/dL (8.4-10.2); Carbon Dioxide 25 mmol/L (22-30); Chloride 104 mmol/L (98-107); Glucose 104 mg/dL (74-99); Non-African American GFR(CKD) >90 (>60 ml/min/1.73 sqM); Potassium 4.1 mmol/L (3.5-5.1); Sodium 130 mmol/L (137-145)
[2020-06-16] MEDS ORDERED: CEFEPIME 2 GM in SODIUM CHLORIDE 0.9% 100 ML IVPB STA (00:35)
[2020-06-16] MEDS ORDERED: VANCOMYCIN TROUGH DUE 1 EACH MISC MISCELLANE ONE (05:00)
[2020-06-16] MEDS: VANCOMYCIN 1,500 MG in SODIUM CHLORIDE 0.9% 250 ML IVPB SCH ×4 (05:13→22:06)
[2020-06-16] MEDS: HYDROcodone/APAP 5-325MG 1 EACH TAB PO PRN (05:20)
[2020-06-16 06:47] LABS: Basophils % (A) 0 %; Eosinophils # (A) 0.2 k/uL (0-0.7); Eosinophils % (A) 3 %; HCT 31.7 % (34.0-46.0); HGB 10.6 gm/dL (11.4-16.0); Lymphocytes # (A) 1.4 k/uL (1.0-4.8); Lymphocytes % (A) 24 %; MCH 29.1 pg (25.0-35.0); MCHC 33.5 g/dL (31.0-37.0); MCV 86.6 fL (80.0-100.0); Mean Platelet Volume 7.4; Monocytes # (A) 0.3 k/uL (0-1.0); Monocytes % (A) 6 %; Neutrophils # (A) 3.9 k/uL (1.3-7.7); Neutrophils % (A) 65 %; Platelet Count 234 k/uL (150-450); RBC 3.66 m/uL (3.80-5.40); RDW 13.2 % (11.5-15.5)
[2020-06-16 06:49] LABS: African American GFR (CKD) >90 (>60 ml/min/1.73 sqM); Anion Gap 3 mmol/L; Blood Urea Nitrogen 5 mg/dL (7-17); Calcium 8.4 mg/dL (8.4-10.2); Carbon Dioxide 26 mmol/L (22-30); Chloride 104 mmol/L (98-107); Glucose 98 mg/dL (74-99); Non-African American GFR(CKD) >90 (>60 ml/min/1.73 sqM); Potassium 4.1 mmol/L (3.5-5.1); Sodium 133 mmol/L (137-145)
[2020-06-16] MEDS: PANTOPRAZOLE 40 MG/10 ML VIAL IV SCH (08:35)
--- NOTE | 2020-06-16 12:57 | P.PN ---
Subjective Progress Note Date: 06/16/20 Principal diagnosis: Status post I&D right hand abscess Patient evaluated at bedside today, she is resting comfortably. She notes improvement with regards to the pain involving the right hand. Her motion in the fingers is much improved. She currently denies any fevers or chills. Objective - Vital Signs Vital signs: Vital Signs Temp 98.3 F 06/16/20 09:00 Pulse 91 06/16/20 09:00 Resp 18 06/16/20 09:00 BP 120/63 06/16/20 09:00 Pulse Ox 97 06/16/20 09:00 Intake & Output 06/15/20 06/16/20 06/16/20 18:59 06:59 18:59 Intake Total 125 Balance 125 Intake: IV 125 Other: Voiding Method Toilet Toilet # Voids 3 1 - Exam Right hand: Postoperative bandage is in good position and condition. This was not removed at bedside today, she does have a Eddie drain in place. There is no active drainage visualized. Soft tissue swelling throughout the forearm and fingers is much improved. She is able to wiggle the fingers no difficulty, this is also much improved. Her sensation to light touch is intact throughout the extremity. Her radial and ulnar pulses are 2+. - Labs CBC & Chem 7: 06/16/20 05:24 06/16/20 05:24 Labs: Abnormal Lab Results - Last 24 Hours (Table) 06/16/20 06/16/20 06/16/20 Range/Units 00:10 00:10 00:10 RBC 3.41 L (3.80-5.40) m/uL Hgb 10.0 L D (11.4-16.0) gm/dL Hct 29.3 L (34.0-46.0) % Sodium 130 L (137-145) mmol/L BUN 5 L (7-17) mg/dL Creatinine 0.48 L (0.52-1.04) mg/dL Glucose 104 H (74-99) mg/dL Plasma Lactic Acid Wayne 0.5 L (0.7-2.0) mmol/L Calcium 8.1 L (8.4-10.2) mg/dL 06/16/20 06/16/20 Range/Units 05:24 05:24 RBC 3.66 L (3.80-5.40) m/uL Hgb 10.6 L (11.4-16.0) gm/dL Hct 31.7 L (34.0-46.0) % Sodium 133 L (137-145) mmol/L BUN 5 L (7-17) mg/dL Creatinine 0.51 L (0.52-1.04) mg/dL Glucose (74-99) mg/dL Plasma Lactic Acid Wayne (0.7-2.0) mmol/L Calcium (8.4-10.2) mg/dL Microbiology - Last 24 Hours (Table) 06/15/20 13:10 Gram Stain - Preliminary Hand - Right Wound Culture - Preliminary Presumptive Staph aureus 06/14/20 21:04 Blood Culture - Preliminary Blood No Growth after 24 hours 06/15/20 13:10 Anaerobic Culture - Preliminary Hand - Right Assessment and Plan Assessment: Right hand cellulitis Right hand abscess Other medical comorbidities Plan: We'll leave current dressing in place, I will remove initial postoperative dressing and Antonito drain tomorrow morning. Await culture and sensitivity Infectious disease and internal medicine recommendations DVT prophylaxis, continue current medication We'll continue to follow during inpatient stay Time with Patient: Less than 30
[2020-06-16] MEDS ORDERED: DEXAMETHASONE SOD PHOSPHATE 10 MG/ML 1 ML VIAL IM STA (13:01)
[2020-06-16 13:40] LABS: INR 0.9 (<1.2); Partial Thromboplastin Time 24.8 sec (22.0-30.0); Prothrombin Time 9.5 sec (9.0-12.0)
[2020-06-16] MEDS: HEPARIN SODIUM,PORCINE 5,000 UNIT/ML 1 ML VIAL SQ SCH ×2 (14:22→20:29)
[2020-06-16] MEDS: ALPRAZolam 0.25 MG TAB PO PRN ×2 (14:57→22:13)
--- NOTE | 2020-06-16 15:58 | P.PN ---
Subjective Progress Note Date: 06/16/20 Principal diagnosis: Right Arm Cellulitis/Abscess Mrs. Mays is a 45-year-old female with a past medical history of asthma, COPD, spontaneous pneumothorax 5, chronic low back pain, migraines coming in with a chief complaint of right hand pain and swelling. Patient thinks that she was bit by a spider and was seen in the emergency department 2 days back. At that time she was given antibiotics, she states that she has been taking them but the redness and swelling worsened and so came into the hospital for further evaluation. Patient also mentions that she probably scratched her right hand over something, had an abrasion and then progressed on to have swelling and red ness. Patient denies having any fevers chills or rigors. She denies having any chest pain or palpitations. No cough or difficulty in breathing. Patient denies having any abdominal pain, nausea, vomiting or diarrhea. She denies having any dysuria or hematuria. Patient denies IV drug abuse. In the emergency patient had a temperature of 98.9, heart rate is 90, respiratory rate 20, blood pressure 1 10 x 53, saturating at 9 8% on room air. She had an x-ray of the hand showing soft tissue swelling, joint space is normally fairly and carpal bones intact. Blood work showed white count of 10.6, hemoglobin 11.7. Sodium 137, palpitations 3.8, BNP 13, creatinine 0.68. On 06/16/2020 - last night, the patient complained of increased pain and swelling in her right upper extremity. A dose of cefepime was given and a CAT scan with contrast of the right upper extremity was obtained. It showed diffuse subcutaneous edema around the forearm. It was also subcutaneous edema around the lower portion of the humerus. No discrete abscess was noted. This morning patient is currently sitting up in her bed appears to be no acute distress. She states that she still continues to have pain in her right upper extremity, improving gradually. She thinks her swelling is getting down as she is able to forward her elbow more freely. On reviewing the vitals patient's temperature is 98.3, heart rate 91 respiratory rate 18 blood pressure 120/63 saturating 97% on room air. On reviewing labs white count of 6, hemoglobin 10.6, platelets 234. Sodium 133, potassium 4.1, chloride 104, bicarbonate 26. BUN is 5 and creatinine of 0.51. Active Medications Acetaminophen (Acetaminophen Tab 325 Mg Tab) 650 mg PO Q6HR PRN PRN Reason: Mild Pain or Fever > 100.5 Hydrocodone Bitart/Acetaminophen (Hydrocodone/Apap 5-325mg 1 Each Tab) 1 each PO Q6HR PRN PRN Reason: Pain Last Admin: 06/16/20 05:20 Dose: 1 each Documented by: Alprazolam (Alprazolam 0.25 Mg Tab) 0.25 mg PO TID PRN PRN Reason: Anxiety Last Admin: 06/16/20 14:57 Dose: 0.25 mg Documented by: Heparin Sodium (Porcine) (Heparin Sodium,Porcine 5,000 Unit/Ml 1 Ml Vial) 5,000 unit SQ Q12HR [facility] Last Admin: 06/16/20 14:22 Dose: 5,000 unit Documented by: Hydromorphone HCl (Hydromorphone 1 Mg/Ml 1 Ml Syringe) 1 mg IVP Q3HR PRN PRN Reason: Severe Pain Last Admin: 06/16/20 14:22 Dose: 1 mg Documented by: Sodium Chloride (Saline 0.9%) 1,000 mls @ 20 mls/hr IV .Q24H [facility] Last Admin: 06/16/20 00:29 Dose: 20 mls/hr Documented by: Vancomycin HCl 1,500 mg/ (Sodium Chloride) 250 mls @ 167 mls/hr IVPB Q8H [facility] Last Admin: 06/16/20 14:22 Dose: 167 mls/hr Documented by: Ibuprofen (Ibuprofen 400 Mg Tab) 400 mg PO Q6HR PRN PRN Reason: Mild Pain or Fever > 100.5 Naloxone HCl (Naloxone 0.4 Mg/Ml 1 Ml Vial) 0.2 mg IV Q2M PRN PRN Reason: Opioid Reversal Ondansetron HCl (Ondansetron 4 Mg/2 Ml Vial) 4 mg IVP Q8HR PRN PRN Reason: Nausea And Vomiting Pantoprazole Sodium (Pantoprazole 40 Mg/10 Ml Vial) 40 mg IV DAILY [facility] Last Admin: 06/16/20 08:35 Dose: 40 mg Documented by: Temazepam (Temazepam 15 Mg Cap) 15 mg PO HS PRN PRN Reason: Insomnia Tramadol HCl (Tramadol 50 Mg Tab) 50 mg PO QID PRN PRN Reason: Pain Objective - Vital Signs Vital signs: Vital Signs Temp 98.3 F 06/16/20 09:00 Pulse 91 06/16/20 09:00 Resp 18 06/16/20 09:00 BP 120/63 06/16/20 09:00 Pulse Ox 97 06/16/20 09:00 Intake & Output 06/15/20 06/16/20 06/16/20 18:59 06:59 18:59 Intake Total 125 Balance 125 Intake: IV 125 Other: Voiding Method Toilet Toilet # Voids 3 1 - Exam PHYSICAL EXAM GEN. APPEARANCE: alert, in no apparent distress HEENT: No pallor, No JVD RESPIRATORY EXAM: normal lung sounds bilaterally. No wheezes or crackles CARDIOVASCULAR EXAM: regular rate, normal rhythm, normal heart sounds. GI/ABDOMINAL EXAM: soft, normal bowel sounds. EXTREMITIES EXAM: Right upper arm and forearm - less soft tissue swelling com pared to yesterday . Right hand - wrapped up in a gauze . NEUROLOGICAL EXAM: alert, oriented X3, no focal deficits PSYCHIATRIC EXAM: normal affect, normal mood SKIN EXAM: warm, dry, intact, normal color. Absent: rash - Labs CBC & Chem 7: 06/16/20 05:24 06/16/20 05:24 Labs: Abnormal Lab Results - Last 24 Hours (Table) 06/16/20 06/16/20 06/16/20 Range/Units 00:10 00:10 00:10 RBC 3.41 L (3.80-5.40) m/uL Hgb 10.0 L D (11.4-16.0) gm/dL Hct 29.3 L (34.0-46.0) % Sodium 130 L (137-145) mmol/L BUN 5 L (7-17) mg/dL Creatinine 0.48 L (0.52-1.04) mg/dL Glucose 104 H (74-99) mg/dL Plasma Lactic Acid Wayne 0.5 L (0.7-2.0) mmol/L Calcium 8.1 L (8.4-10.2) mg/dL 06/16/20 06/16/20 Range/Units 05:24 05:24 RBC 3.66 L (3.80-5.40) m/uL Hgb 10.6 L (11.4-16.0) gm/dL Hct 31.7 L (34.0-46.0) % Sodium 133 L (137-145) mmol/L BUN 5 L (7-17) mg/dL Creatinine 0.51 L (0.52-1.04) mg/dL Glucose (74-99) mg/dL Plasma Lactic Acid Wayne (0.7-2.0) mmol/L Calcium (8.4-10.2) mg/dL Microbiology - Last 24 Hours (Table) 06/15/20 13:10 Gram Stain - Preliminary Hand - Right Wound Culture - Preliminary Presumptive Staph aureus 06/14/20 21:04 Blood Culture - Preliminary Blood No Growth after 24 hours 06/15/20 13:10 Anaerobic Culture - Preliminary Hand - Right Assessment and Plan Assessment: ASSESSMENT Right hand cellulitis/abscess Asthma/COPD Spontaneous pneumothorax 5 Chronic low back pain Migraine headaches Degenerative joint disease History of alcohol abuse in the past Bipolar disorder Anxiety with depression Nicotine dependence History of heroin abuse in the past PLAN: Orthopedic services have been consulted and patient had incision and drainage of the left hand abscess. She received a dose of ceftriaxone and vancomycin in the ED. patient had Doppler that was negative for DVT and PTE. She also had CT of the right upper extremity with contrast that was positive for subcutaneous edema. No focal collection of fluid. Continue antibiotics in the form of vancomycin. ID and orthopedics following the patient. GI prophylaxis with Protonix. Further recommendations to follow depending on the progress of the patient.
--- NOTE | 2020-06-16 22:38 | PN ---
PROGRESS NOTE DATE OF SERVICE: 06/16/2020 REASON FOR FOLLOWUP: Right hand abscess and cellulitis. INTERVAL HISTORY: The patient is currently afebrile. She was noticed to have some more swelling to the right arm, for which the patient had a CT of the right upper extremity that did not show any evidence of abscess or . This morning the patient did have some swelling but no redness. Denies having any chest pain or shortness of breath or cough or any worsening pain to the right hand area. PHYSICAL EXAMINATION: Blood pressure 111/71 with a pulse of 82, temperature 98.3. She is 98% on room air. General description is a middle-aged female up in the bed in no distress. RESPIRATORY SYSTEM: Unlabored breathing. Clear to auscultation anteriorly. HEART: S1, S2. Regular rate and rhythm. ABDOMEN: Soft. No tenderness. LABS: Hemoglobin is 10.3, white count 6.0, creatinine 0.51. DIAGNOSTIC IMPRESSION AND PLAN: Patient with right hand abscess, status post surgical drainage. Culture with Staph aureus. Sensitivities pending. Patient to continue with vancomycin while waiting for the culture to finalize. We will monitor her clinical course closely. MMODL / IJN: [id number] /
[2020-06-17] MEDS: HYDROmorphone 1 MG/ML 1 ML SYRINGE IVP PRN ×4 (05:24→16:34)
[2020-06-17] MEDS: VANCOMYCIN 1,500 MG in SODIUM CHLORIDE 0.9% 250 ML IVPB SCH (05:25)
[2020-06-17 08:02] LABS: HCG,Qualitative Serum Not Detected
[2020-06-17 08:07] LABS: African American GFR (CKD) >90 (>60 ml/min/1.73 sqM); Non-African American GFR(CKD) >90 (>60 ml/min/1.73 sqM)
--- NOTE | 2020-06-17 08:55 | P.PN ---
Subjective This is a pleasant 45 years old female with past medical history of asthma/COPD. Chronic back pain. Migraine. Anxiety and depression. Nicotine dependence. Presents because of right hand infection and abscess status post I and D by orthopedic team on 06/15 and culture showing staph. Patient is currently covered with IV vancomycin with infectious disease on the case This morning patient was sleepy and refused to unwrap the dressing around her right hand however she states the swelling and redness in the right distal arm and right forearm are significantly improving. She is hemodynamically stable. Creatinine is normal at 0.48. Rest of labs are unremarkable. Sodium was slightly low at 133. Objective - Vital Signs Vital signs: Vital Signs Temp 97.9 F 06/17/20 08:50 Pulse 72 06/17/20 08:50 Resp 16 06/17/20 08:50 BP 116/68 06/17/20 08:50 Pulse Ox 100 06/17/20 08:50 Intake & Output 06/16/20 06/17/20 06/17/20 18:59 06:59 18:59 Intake Total 870 790 Balance 870 790 Intake: Intake, IV Titration 330 250 Amount Sodium Chloride 0.9% 1, 80 000 ml @ 20 mls/hr IV . Q24H SARAH Rx#:[id number] Vancomycin 1,500 mg In 250 250 Sodium Chloride 0.9% 250 ml @ 167 mls/hr IVPB Q8H SARAH Rx#:[id number] Oral 540 540 Other: Voiding Method Toilet Toilet # Voids 2 1 - Exam GENERAL: The patient is alert and oriented x3, not in any acute distress. Well developed, well nourished. HEENT: Pupils are round and equally reacting to light. EOMI. No scleral icterus. No conjunctival pallor. Normocephalic, atraumatic. No pharyngeal erythema. No thyromegaly. CARDIOVASCULAR: S1 and S2 present. No murmurs, rubs, or gallops. PULMONARY: Chest is clear to auscultation, no wheezing or crackles. ABDOMEN: Soft, nontender, nondistended, normoactive bowel sounds. No palpable organomegaly. MUSCULOSKELETAL: No joint swelling or deformity. -EXTREMITIES: No cyanosis, clubbing, or pedal edema. Right hand in a dressing. Swelling and redness of the right forearm and distal arm are significantly improved NEUROLOGICAL: Gross neurological examination did not reveal any focal deficits. SKIN: No rashes. no petechiae. - Labs CBC & Chem 7: 06/16/20 05:24 06/17/20 07:14 Labs: Abnormal Lab Results - Last 24 Hours (Table) 06/17/20 Range/Units 07:14 Creatinine 0.48 L (0.52-1.04) mg/dL Microbiology - Last 24 Hours (Table) 06/16/20 00:10 Blood Culture - Preliminary Blood No Growth after 24 hours 06/14/20 21:04 Blood Culture - Preliminary Blood No Growth after 48 hours 06/15/20 13:10 Gram Stain - Preliminary Hand - Right Wound Culture - Preliminary Presumptive Staph aureus Assessment and Plan Assessment: Right hand cellulitis/abscess History of Asthma/COPD History of Spontaneous pneumothorax 5 Chronic low back pain Migraine headaches Degenerative joint disease History of alcohol abuse in the past Bipolar disorder Anxiety with depression Nicotine dependence History of heroin abuse in the past Plan: This is a pleasant 45 years old female who presents with right hand cellulitis and abscess status post I and D. Continue with IV vancomycin. Follow-up recommendation by infectious disease and orthopedic team. Labs and medication were reviewed.. Continue same treatment. Continue with symptomatic treatment. Resume home medication. Monitor lytes and vitals. DVT and GI prophylaxis. Further recommendationsas per clinical course of the patient DVT prophylaxis: Subcutaneous heparin GI Prophylaxis: Ppi OT: Pending Prognosis is guarded
[2020-06-17] MEDS: PANTOPRAZOLE 40 MG/10 ML VIAL IV SCH (09:58)
[2020-06-17] MEDS: HEPARIN SODIUM,PORCINE 5,000 UNIT/ML 1 ML VIAL SQ SCH ×2 (09:59→20:50)
--- NOTE | 2020-06-17 13:02 | P.PN ---
Subjective Progress Note Date: 06/17/20 Principal diagnosis: Status post I&D right hand abscess Patient evaluated at bedside today, she is resting comfortably. Patient is feeling well, the swelling throughout the upper extremity has improved. She denies any fevers or chills at this time. Objective - Vital Signs Vital signs: Vital Signs Temp 97.9 F 06/17/20 08:50 Pulse 72 06/17/20 08:50 Resp 16 06/17/20 09:00 BP 116/68 06/17/20 08:50 Pulse Ox 100 06/17/20 08:50 Intake & Output 06/16/20 06/17/20 06/17/20 18:59 06:59 18:59 Intake Total 870 790 350 Balance 870 790 350 Intake: IV 250 Vancomycin 1,500 mg In 250 Sodium Chloride 0.9% 250 ml @ 167 mls/hr IVPB Q8H SARAH Rx#:[id number] Intake, IV Titration 330 250 Amount Sodium Chloride 0.9% 1, 80 000 ml @ 20 mls/hr IV . Q24H SARAH Rx#:[id number] Vancomycin 1,500 mg In 250 250 Sodium Chloride 0.9% 250 ml @ 167 mls/hr IVPB Q8H SARAH Rx#:[id number] Oral 540 540 100 Other: Voiding Method Toilet Toilet Toilet # Voids 2 1 1 - Exam Right hand: Postoperative bandages removed today bedside, the Eddie drain was removed. There is no active drainage visualized. The erythema is much improved throughout the hand. There is granulation tissue present surrounding the wound. Her sensation to light touch is intact throughout the extremity. Her radial and ulnar pulses are 2+. - Labs CBC & Chem 7: 06/16/20 05:24 06/17/20 07:14 Labs: Abnormal Lab Results - Last 24 Hours (Table) 06/17/20 Range/Units 07:14 Creatinine 0.48 L (0.52-1.04) mg/dL Microbiology - Last 24 Hours (Table) 06/15/20 13:10 Gram Stain - Final Hand - Right Wound Culture - Final Staphylococcus aureus 06/16/20 00:10 Blood Culture - Preliminary Blood No Growth after 24 hours 06/14/20 21:04 Blood Culture - Preliminary Blood No Growth after 48 hours Assessment and Plan Assessment: Right hand cellulitis Right hand abscess Other medical comorbidities Plan: Discussed the patient today bedside the importance of keeping the wound clean and dry. We discussed dressing changes. Infectious disease recommendations for outpatient antibiotics DVT prophylaxis, continue current medication Plan is to the see patient in the outpatient setting in 2 weeks for suture removal Time with Patient: Less than 30
[2020-06-17] MEDS: ALPRAZolam 0.25 MG TAB PO PRN (13:11)
[2020-06-17] MEDS ORDERED: ALBUTEROL NEBULIZED 2.5 MG/3 ML INHALATION PRN (16:21)
[2020-06-17] MEDS ORDERED: diphenhydrAMINE 50 MG CAP PO PRN (16:22)
[2020-06-17] MEDS: GABAPENTIN 300 MG CAP PO SCH (20:50)
[2020-06-17] MEDS: HYDROcodone/APAP 5-325MG 1 EACH TAB PO PRN (20:58)
[2020-06-17] MEDS ORDERED: QUEtiapine 200 MG TAB PO SCH (21:00)
--- NOTE | 2020-06-17 22:37 | PN ---
PROGRESS NOTE DATE OF SERVICE: 06/17/2020 REASON FOR FOLLOWUP: Right hand abscess with MSSA. INTERVAL HISTORY: The patient is currently afebrile. The patient is breathing comfortably. Still complains of pain to the right hand, though decreased in intensity. No chest pain, shortness of breath or cough. No abdominal pain or diarrhea. PHYSICAL EXAMINATION: Blood pressure 136/86, pulse of 80, temperature 97.1. She is 99% on room air. General description is a middle-aged female lying in bed in no distress. RESPIRATORY SYSTEM: Unlabored breathing. Clear to auscultation. HEART: S1, S2. Regular rate and rhythm. ABDOMEN: Soft. No tenderness. Right hand swelling and redness slightly decreased. Minimal drainage. LABS: Creatinine 0.48. Cultures came back positive for MSSA. Blood culture negative. DIAGNOSTIC IMPRESSION AND PLAN: Patient with right hand abscess, status post drainage. Culture with MSSA. Antibiotic adjusted to cefazolin 2 grams q.8 hours, and in view of the wrist infection, she will benefit from at least 10 days to a 2-week course of IV cefazolin, for which a midline will be placed. Continue with supportive care. MMODL / IJN: [id number] /
[2020-06-18] MEDS: SODIUM CHLORIDE 0.9% 1,000 ML IV SCH (00:01)
[2020-06-18 07:48] LABS: African American GFR (CKD) >90 (>60 ml/min/1.73 sqM); Non-African American GFR(CKD) >90 (>60 ml/min/1.73 sqM)
[2020-06-18 07:57] VITALS: BP 104/57; PULSE 75; RESP 18; TEMP 98
[2020-06-18] MEDS: HYDROcodone/APAP 5-325MG 1 EACH TAB PO PRN (07:59)
[2020-06-18] MEDS ORDERED: PANTOPRAZOLE 40 MG TABLET PO SCH (09:00)
[2020-06-18] MEDS: GABAPENTIN 300 MG CAP PO SCH (10:04)
[2020-06-18] MEDS: HEPARIN SODIUM,PORCINE 5,000 UNIT/ML 1 ML VIAL SQ SCH (10:04)
--- NOTE | 2020-06-18 11:19 | P.DS ---
Providers Date of admission: 06/17/20 08:37 Attending physician: Alvin Gayle Consults: 06/14/20 22:25 Consult Physician Stat Consulting Provider: Jose Sun Consult Reason/Comments: Hand abscess Do you want consulting provider notified?: Yes Consult Physician Stat Consulting Provider: Brian Jenkins Consult Reason/Comments: R hand abscess Do you want consulting provider notified?: Yes Primary care physician: Neelam Newby [facility] Course: Diagnoses: Right hand cellulitis/abscess secondary to MSSA History of Asthma/COPD History of Spontaneous pneumothorax 5 Chronic low back pain Migraine headaches Degenerative joint disease History of alcohol abuse in the past Bipolar disorder Anxiety with depression Nicotine dependence History of heroin abuse in the past Hospital course: This is a pleasant 45 years old female with past medical history of asthma/COPD. Chronic back pain. Migraine. Anxiety and depression. Nicotine dependence. Presents because of right hand infection and abscess status post I and D by orthopedic team on 06/15 and culture showing staph (MSSA ). Patient is been evaluated by infectious disease team who recommended cefazolin for 10-14 days through IV antibiotic and midline placed. Patient right arm and hand cellulitis are significantly improved, no other new complaint Patient was cleared for discharge by infectious disease and orthopedic team's Problems and management plan were discussed with the patient and he verbalized understanding and acceptance Patient was found stable and can be discharged home however he needs follow-up as an outpatient. Patient was instructed to follow up with PCP within one week and patient agrees, also pt was instructed to f/u with ID and she agrees. also with orthopedic team with RIGO russo and pt agrees , also i instructed pt to discontinue her midline once her antibiotic finished and she agrees Gen: patient is a AAOx3, no distress CVS: S1-S2, RRR, no murmur Lungs: B/L CTA, no wheezing Abdomen: soft, no distention, no tenderness, positive bowel sounds -Extremity: no leg edema or induration. Right hand cellulitis, dressing is in place. Patient refused to unwrap the dressing Time spent more than 35 minutes Patient Condition at Discharge: Stable Plan - Discharge Summary Discharge Rx Participant: No New Discharge Prescriptions: No Action diphenhydrAMINE [Benadryl] 50 mg PO QID PRN #20 capsule PRN Reason: Rash QUEtiapine FUMARATE [SEROquel] 200 mg PO HS Albuterol Sulfate [Proair Hfa] 1 puff INHALATION RT-QID PRN PRN Reason: Shortness Of Breath Ibuprofen [Motrin] 800 mg PO TID PRN PRN Reason: Pain Gabapentin 300 mg PO BID Diazepam [Valium] 10 mg PO HS Butalb/APAP/Caff 50-325-40Mg [Fioricet 50-325-40] 1 tab PO DAILY PRN PRN Reason: Migraine Headache Baclofen 10 - 20 mg PO HS PRN PRN Reason: Muscle Spasm Sulfamethox-Tmp 800-160Mg [Bactrim Ds] 1 tab PO Q12HR Buprenorphine HCl/Naloxone HCl [Zubsolv 1.4-0.36 mg Tablet Sl] 1 tab SL DAILY Discharge Medication List diphenhydrAMINE [Benadryl] 50 mg PO QID PRN #20 capsule 06/12/20 [Rx] Albuterol Sulfate [Proair Hfa] 1 puff INHALATION RT-QID PRN 06/14/20 [History] Baclofen 10 - 20 mg PO HS PRN 06/14/20 [History] Buprenorphine HCl/Naloxone HCl [Zubsolv 1.4-0.36 mg Tablet Sl] 1 tab SL DAILY 06/14/20 [History] Butalb/APAP/Caff 50-325-40Mg [Fioricet 50-325-40] 1 tab PO DAILY PRN 06/14/20 [History] Diazepam [Valium] 10 mg PO HS 06/14/20 [History] Gabapentin 300 mg PO BID 06/14/20 [History] Ibuprofen [Motrin] 800 mg PO TID PRN 06/14/20 [History] QUEtiapine FUMARATE [SEROquel] 200 mg PO HS 06/14/20 [History] Sulfamethox-Tmp 800-160Mg [Bactrim Ds] 1 tab PO Q12HR 06/14/20 [History] Follow up Appointment(s)/Referral(s): Keyonna Richter MD [Primary Care Provider] - 1-2 days Kye Russo PAC [PHYSICIAN MANAGER CCU] - 2 Weeks Brian Jenkins MD [STAFF PHYSICIAN] - 1 Week Patient Instructions/Handouts: Abscess (ED) Activity/Diet/Wound Care/Special Instructions: Orthopedic discharge instructions: 1. Resume home medications 2. Keep incision clean, covered and dry while showering 3. Avoid excessive use of the right hand 4. Daily dressing changes, utilize normal saline and small amount of antibacterial soap and changing bandages 5. Plan for follow-up in the outpatient setting in 2 weeks for suture removal Discontinue midline after finishing your IV antibiotics Resume previous diet Activity is restricted until you see your doctor Discharge Disposition: HOME SELF-CARE
[2020-06-18] MEDS: HYDROmorphone 1 MG/ML 1 ML SYRINGE IVP PRN (12:00)
--- NOTE | 2020-06-18 19:32 | PN ---
PROGRESS NOTE DATE OF SERVICE: 06/18/2020 REASON FOR FOLLOWUP: Right hand abscess. INTERVAL HISTORY: The patient was seen on rounds early this afternoon. The patient has been afebrile. Overall pain to the right hand is controlled. No chest pain or shortness of breath or cough. No abdominal pain or diarrhea. PHYSICAL EXAMINATION: Blood pressure 104/57, pulse of 75, temperature 98. She is 98% on room air. General description is a middle-aged female lying in bed in no distress. RESPIRATORY SYSTEM: Unlabored breathing. Clear to auscultation anteriorly. HEART: S1, S2. Regular rate and rhythm. ABDOMEN: Soft. No tenderness. Right hand is currently dressed. No obvious drainage on the dressing. LABS: Creatinine 0.54. Local wound culture with MSSA. Blood culture negative. DIAGNOSTIC IMPRESSION AND PLAN: Right hand abscess, status post drainage with extensive infection. Advise a 2-week course of IV cefazolin 2 grams q.8 hours and to follow up in the office 2 days before antibiotics are completed. MMODL / IJN: [id number] /
--- NOTE | 2020-06-20 06:57 | CDI ---
Documentation Clarification Form Date: 06/20/2020 06:47:00 AM From: Cassidy Tamayo Phone: If you have a question about this query, please contact Radha Terrell Pecan Picker at [phone] between 8am and 5pm. Admit Date: 06/17/2020 08:37:00 AM Patient Name: Angie Mays Visit Number: [id number] Discharge Date: 06/18/2020 03:04:00 PM ATTENTION: The Clinical Documentation Specialists (CDI) and [facility] Coding Staff appreciate your assistance in clarifying documentation. Please respond to the clarification below the line at the bottom and electronically sign. The CDI & [facility] Coding staff will review the response and follow-up if needed. Please note: Queries are made part of the Legal Health Record. If you have any questions, please contact the author of this message via ITS. Dr. Jose Sun Per your progress notes/operative note, an excisional debridement was performed of the necrotic tissue superficially. Please clarify the depth of tissue excised. History/Risk Factors: spider bite with MSSA abscess RMF and cellulitis. Treatment: Excisional debridement and IV antibiotics Five elements required for accurate and compliant documentation of a debridement: 1. Technique used (e.g., excisional, excised, cutting, etc.) 2. Instrument(s) used (e.g., scalpel, curette, etc.) 3. Nature of the tissue removed (e.g., necrotic, devitalized tissues, non- viable tissue, etc.) 4. Appearance and size of the wound (e.g., down to fresh bleeding tissue, 7cm x 10cm, etc.) 5. Depth of the debridement* (e.g., skin, subcutaneous tissue, fascia, muscle, bone, etc.) In order to capture the severity of condition and code the appropriate procedure; could you please document the following: Debridement of skin only Debridement of skin subcutaneous tissue and fascia Debridement to tendon Debridement to bone Debridement to muscle Other; please specify Unable to determine debridement of skin and subcutaneous tissue MTDD
== END 2020-06-18 15:04 | disposition home or self-care (01) | DRG 580 ==
LOC: EC 20:05 → 1SOBS 21:39 → OBSVTOIN 06-17 08:37
PROVIDERS: ADMIT Hospitalist; ATTEND Hospitalist
PROC: 0JBJ0ZZ Excision of Right Hand Subcutaneous Tissue and Fascia, Open Approach (ICD-10-PCS; principal; 2020-06-15 13:00)
PROC: 05HF33Z Insertion of Infusion Device into Left Cephalic Vein, Percutaneous Approach (ICD-10-PCS; 2020-06-18 13:05)
DX: L02.511 Cutaneous abscess of right hand (principal); L03.113 Cellulitis of right upper limb; F31.9 Bipolar disorder, unspecified; J44.9 Chronic obstructive pulmonary disease, unspecified; F11.11 Opioid abuse, in remission; F17.210 Nicotine dependence, cigarettes, uncomplicated; F41.8 Other specified anxiety disorders; G43.909 Migraine, unspecified, not intractable, without status migrainosus; G89.29 Other chronic pain; M19.90 Unspecified osteoarthritis, unspecified site; T63.301A Toxic effect of unspecified spider venom, accidental (unintentional), initial encounter; M54.5 Low back pain; Z87.09 Personal history of other diseases of the respiratory system; F10.11 Alcohol abuse, in remission; B95.61 Methicillin susceptible Staphylococcus aureus infection as the cause of diseases classified elsewhere; Z79.899 Other long term (current) drug therapy; Z88.5 Allergy status to narcotic agent; Z88.8 Allergy status to other drugs, medicaments and biological substances; Z88.0 Allergy status to penicillin; Z98.51 Tubal ligation status; Z82.49 Family history of ischemic heart disease and other diseases of the circulatory system; Z82.5 Family history of asthma and other chronic lower respiratory diseases; Z82.61 Family history of arthritis
CPT/HCPCS: 36410; 36415; 76937; 80048; 80053; 80202; 82565; 83605; 84703; 85025; 85610; 85730; 87040; 87070; 87075; 87077; 87186; 87205; 94760; 96365; 96367; 96375; 96376; 99285